=== PATIENT | female | born 1935 | race Caucasian/White ===

== ENCOUNTER 2018-02-12 14:49 | Observation (INO) | payer OTHER, SELFPAY ==
[2018-02-12 15:16] VITALS: BP 162/62; PULSE 81; RESP 18; TEMP 36.9; O2SAT 100
--- NOTE | 2018-02-12 15:38 | PC.NURSE ---
Requests be admitted to SNF for care as lives alone and cannot care for herself after rt hip surgery 2 weeks ago
--- NOTE | 2018-02-12 15:42 | DI.RAD.S_ITS ---
PROCEDURE: XR CHEST 1V INDICATIONS: s/p hip replacement, increased pain TECHNIQUE: One view of the chest was acquired. COMPARISON: None. FINDINGS: Surgical changes and devices: None. Lungs and pleura: There is a nodular density in the left lower lungs on. No pleural effusions or pneumothorax. Lungs are clear. Mediastinum: Mediastinal contours appear normal. Heart size is mildly increased. Bones and chest wall: No suspicious bony lesions. Overlying soft tissues appear unremarkable. Bilateral shoulder joint degeneration. IMPRESSION: 1. No acute cardiopulmonary disease. 2. A nodular density in the left lower lung zone. Recommend a short-term followup standard 2 view chest x-ray for further origin. 3. Mild cardiomegaly. Dictated by: Fabrice Jefferson M.D. on 02/12/2018 at 16:40 Approved by: Fabrice Jefferson M.D. on 02/12/2018 at 16:43
--- NOTE | 2018-02-12 15:42 | DI.RAD.S_ITS ---
PROCEDURE: XR HIP W PEL IF DONE RT 2V INDICATIONS: s/p hip replacement, increased pain TECHNIQUE: 2 views of the hip were acquired. COMPARISON: [facility] [place], CR, XR PELVIS W LATERAL HIP RT, 08/14/2015, 9:59. [facility], CR, PELVIS W/LAT HIP (RT) (PNL), 09/04/2014, 14:02. [facility], CR, HIP 2V RIGHT, 08/28/2008, 12:32. FINDINGS: Bones: There is right hip arthroplasty with prosthesis in anatomic alignment. No fractures or dislocations. No suspicious bony lesions. The visualized pelvic ring appears intact. Degenerative disc disease in the lower lumbar spine. 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 Soft tissues: No suspicious soft tissue calcifications or masses. IMPRESSION: Right hip prosthesis in anatomic alignment. Dictated by: Fabrice Jefferson M.D. on 02/12/2018 at 16:43 Approved by: Fabrice Jefferson M.D. on 02/12/2018 at 16:46
--- NOTE | 2018-02-12 15:44 | ED.GENADULT ---
HPI - General Adult General Chief complaint: Extremity Injury, Lower Stated complaint: discomfort and pain from hip replacement Time Seen by Provider: 02/12/18 15:28 Source: patient and old records reviewed Mode of arrival: other (private auto by EMS from [facility]) Limitations: no limitations History of Present Illness HPI narrative: This is an 82-year-old female who comes to the emergency department with complaint of right lower extremity pain. Patient had a anterior hip replacement about a week ago. Patient states that since then she has been increasingly in pain. Patient states that she was told that she should have help at home but she did not when she was discharged home. She thought she could get around adequately on her own but she has been unable to. She has been taking oxycodone every 6 hr along with 2 Tylenol every 6 hr which helps her pain during the day and is somewhat controlled but during the evening she is quite uncomfortable. Patient states she is not able to get around the home. She is not even really able to move around her bed very easily. She states that she has not had any fevers, no chest pain, no shortness of breath, no nausea or vomiting. She has been having regular stools and taking a stool softener. No new urinary issues. She has been having swelling in both her lower extremities. She is on a diuretic she states the swelling has been worse and she has suspect this is because she had a regular salt diet while she was in the hospital. She was on a diuretic but is continuing to have edema and some swelling from a if on her anterior calf. Patient states at that the incision seems to be healing well on her leg. They both are swollen she does not think that the right is extensively more swollen than the left. She is on Eliquis secondary to have atrial fibrillation and takes Tikosyn. She does have a history significant for cardiac ablation. Patient has been taking her regular medications. Related Data Home Medications Medication Instructions Recorded Confirmed acetaminophen [Tylenol Extra 500 mg PO PRN PRN 02/12/18 02/12/18 Strength] apixaban [Eliquis] 2.5 mg PO BID 02/12/18 02/12/18 carvedilol 25 mg PO BID 02/12/18 02/12/18 docusate sodium 100 mg PO DIRECTED 02/12/18 02/12/18 dofetilide 125 mcg PO Q12H 02/12/18 02/12/18 oxycodone 2.5 - 5 mg PO Q4H PRN 02/12/18 02/12/18 Allergies Allergy/AdvReac Type Severity Reaction Status Date / Time No Known Drug Allergies Allergy Verified 02/12/18 15:52 Review of Systems Review of Systems All systems reviewed & are unremarkable except as noted in HPI and below Constitutional Denies chills, Denies fever(s), Denies frequent falls, Denies malaise and Denies weakness Cardiovascular Denies chest pain, Reports edema (b/l legs), Denies irregular heart rhythm, Denies lightheadedness, Denies palpitations, Denies dyspnea, Denies dyspnea on exertion and Denies orthopnea Respiratory Denies cough, Denies dyspnea, Denies dyspnea on exertion and Denies wheezing Gastrointestinal Gastrointestinal: Denies abdominal pain, Denies change in bowel habits, Denies constipation (taking stool softener), Denies diarrhea, Denies nausea and Denies vomiting Genitourinary Denies urinary frequency, Denies dysuria and Denies urinary urgency Musculoskeletal Reports as per HPI, Denies back pain, Reports arthralgias (right hip pain), Reports limited range of motion, Denies muscle weakness, Denies numbness, Reports radiating pain into limb and Denies tingling Integumentary/Breasts Denies unusual bruising and Reports other (healing incision on right leg, cut on lane left leg oozing fluid (not blood)) Neurologic Denies frequent falls, Denies numbness, Denies sensory deficit, Denies tingling and Denies weakness Endocrine Denies palpitations Allergic/Immunologic Denies wheezing PFSH Medical History Atrial fibrillation (Acute) Surgical History History of radiofrequency ablation procedure for cardiac arrhythmia (Acute) Status post right hip replacement (Acute) Status post surgery (09/12/08) Social History details: Lives on [facility] Smoking Status: Former smoker Exam Narrative Exam Narrative: GENERAL: Alert and oriented x three, obese, well-appearing female in moderate distress. The patient is lying on her left side she appears quite uncomfortable and when she tries to roll onto her back seems to worsen her pain in her right hip. HEENT: Head normocephalic, atraumatic, EOMI, pupils reactive, face symmetric, moist mucous membranes NECK: Supple, full range of motion CARDIOVASCULAR: Regular rate and rhythm without murmurs, rubs or gallops. RESPIRATORY: Breath sounds equal bilaterally, no wheezes rales or rhonchi. ABDOMEN: Soft, nontender. Normoactive bowel sounds all 4 quadrants. No guarding or rebound, rigidity, no mass : No CVA tenderness EXTREMITIES: Patient has pain of the right hip with palpation, she is able to flex it and extend slightly, patient incision appears clean dry and intact and appears to be healing without any signs of cellulitis there is no erythema or drainage. Patient's sutures appear to be dissolving. Patient had 2+ edema bilateral lower extremities. She has cap refill less than 2 sec in both lower extremities. Am able to cut clearly palpate a pulse in both extremities. Patient does not have any weakness, she has normal sensation throughout the legs. Neurovascularly intact NEUROLOGICAL: Cranial nerves II through XII grossly intact. Moving all extremities SKIN: Warm, dry, no petechiae, no rashes or lesions. Initial Vital Signs Initial Vital Signs: Vital Signs Temperature 98.5 F 02/12/18 15:16 Pulse Rate 81 02/12/18 15:16 Respiratory Rate 18 02/12/18 15:16 Blood Pressure 162/62 H 02/12/18 15:16 Pulse Oximetry 100 02/12/18 15:16 Course Orders Ordered: ED Orders 02/12/18 15:41 EKG-12 Lead Stat 02/12/18 15:42 XR chest 1V Stat XR hip w pel if done RT 2V Stat 02/12/18 16:10 B Type Natriuretic Peptide Stat Complete Blood Count AUTO DIFF Stat Comprehensive Metabolic Panel Stat Partial Thromboplastin Time Stat Procalcitonin Stat Prothrombin Time INR Stat Troponin & CK Cardiac Panel Stat Discontinued Medications Furosemide (Lasix) 40 mg IV NOW ONE Stop: 02/12/18 17:18 Last Admin: 02/12/18 17:32 Dose: 40 mg Hydromorphone HCl (Dilaudid) 1 mg IV NOW ONE Stop: 02/12/18 15:42 Last Admin: 02/12/18 15:57 Dose: 1 mg Vital Signs - 8 hr 02/12/18 15:16 02/12/18 16:59 02/12/18 18:03 Temperature 98.5 F Pulse Rate 81 73 78 Respiratory Rate 18 20 19 Blood Pressure 162/62 H Blood Pressure [Left Wrist] 155/54 H 136/50 L Pulse Oximetry 100 98 100 Medical Decision Making Lab Data Lab results reviewed: Yes I reviewed the patient's lab results. Result diagrams: 02/12/18 16:10 02/12/18 16:10 Lab Results 02/12/18 02/12/18 02/12/18 Range/Units 16:10 16:10 16:10 WBC 7.2 (4.5-11.0) X10^3/uL RBC 3.42 L (4.0-5.2) X10^6/uL Hgb 10.7 L (12.0-16.0) g/dL Hct 32.0 L (36-46) % MCV 93.7 (80-100) fL MCH 31.4 (26-34) PG MCHC 33.5 (30-36) % RDW 13.9 (11.6-14.8) % Plt Count 314 (150-400) X10^3/uL Neut % (Auto) 53.1 (50-75) % Lymph % (Auto) 29.8 (25-40) % [place] % (Auto) 8.0 (3-14) % Eos % (Auto) 8.1 H (2-4) % Baso % (Auto) 1.0 (0-2) % Neut # (Auto) 3800 (4389-1736) /uL PT (10.1-12.7) SECONDS INR (0.9-1.3) APTT (26.4-36.2) SECONDS Sodium 139 (137-145) mmol/L Potassium 4.1 (3.4-5.1) mmol/L Chloride 105 (98-107) mmol/L Carbon Dioxide 22 (22-32) mmol/L BUN 17 (7-17) mg/dL Creatinine 0.90 (0.52-1.04) mg/dL Estimated GFR > 60.0 (>60) mL/min BUN/Creatinine Ratio 18.9 (6-22) Glucose 111 H (80-110) mg/dL Calcium 8.9 (8.4-10.2) mg/dL Total Bilirubin 0.6 (0.2-1.3) mg/dL AST 42 H (14-36) IU/L ALT 51 (9-52) IU/L Alkaline Phosphatase 75 (38-126) U/L Total Creatine Kinase 135 (30-135) U/L CK-MB (CK-2) 4.19 H (<2.37) ng/mL CK-MB (CK-2) Rel Index 3.1 (1.5-5.0) % Troponin I 0.014 (0.01-0.034) ng/mL B-Natriuretic Peptide 479 H (<100) Total Protein 7.0 (6.3-8.2) g/dL Albumin 4.0 (3.5-5.0) g/dL Globulin 3.0 (1.7-4.1) g/dL Albumin/Globulin Ratio 1.3 (1.0-2.8) Procalcitonin < 0.05 (<0.5) ng/mL 02/12/18 Range/Units 16:10 WBC (4.5-11.0) X10^3/uL RBC (4.0-5.2) X10^6/uL Hgb (12.0-16.0) g/dL Hct (36-46) % MCV (80-100) fL MCH (26-34) PG MCHC (30-36) % RDW (11.6-14.8) % Plt Count (150-400) X10^3/uL Neut % (Auto) (50-75) % Lymph % (Auto) (25-40) % [place] % (Auto) (3-14) % Eos % (Auto) (2-4) % Baso % (Auto) (0-2) % Neut # (Auto) (7714-4652) /uL PT 13.7 H (10.1-12.7) SECONDS INR 1.2 (0.9-1.3) APTT 32 (26.4-36.2) SECONDS Sodium (137-145) mmol/L Potassium (3.4-5.1) mmol/L Chloride (98-107) mmol/L Carbon Dioxide (22-32) mmol/L BUN (7-17) mg/dL Creatinine (0.52-1.04) mg/dL Estimated GFR (>60) mL/min BUN/Creatinine Ratio (6-22) Glucose (80-110) mg/dL Calcium (8.4-10.2) mg/dL Total Bilirubin (0.2-1.3) mg/dL AST (14-36) IU/L ALT (9-52) IU/L Alkaline Phosphatase (38-126) U/L Total Creatine Kinase (30-135) U/L CK-MB (CK-2) (<2.37) ng/mL CK-MB (CK-2) Rel Index (1.5-5.0) % Troponin I (0.01-0.034) ng/mL B-Natriuretic Peptide (<100) Total Protein (6.3-8.2) g/dL Albumin (3.5-5.0) g/dL Globulin (1.7-4.1) g/dL Albumin/Globulin Ratio (1.0-2.8) Procalcitonin (<0.5) ng/mL Urine Dip Bedside Urine Glucose Negative Bedside Urine Bilirubin - Negative Bedside Urine Ketone - Negative Urine Specific [place] 1.015 Bedside Urine Occult Blood - Negative Bedside Urine pH 6.0 Bedside Urine Protein - Negative Bedside Urine Urobilinogen - Negative Bedside Urine Nitrite - Negative Bedside Urine Leukocytes - Negative Esterase Point of care testing: Urine Dip Bedside Urine Glucose Negative Bedside Urine Bilirubin - Negative Bedside Urine Ketone - Negative Urine Specific [place] 1.015 Bedside Urine Occult Blood - Negative Bedside Urine pH 6.0 Bedside Urine Protein - Negative Bedside Urine Urobilinogen - Negative Bedside Urine Nitrite - Negative Bedside Urine Leukocytes - Negative Esterase Imaging Data left hip xray: Radiologist's impression: [address] [address] XRay Report Signed Patient: Anna Gutierrez MR#: [id number] : 1935 Acct:[id number] Age/Sex: 82 / F Date of Service: 02/12/18 Loc: ED Accession Number: [id number] Procedure: XR hip w pel if done RT 2V Ordering Provider: Yael Shankar D.O. PROCEDURE: XR HIP W PEL IF DONE RT 2V INDICATIONS: s/p hip replacement, increased pain TECHNIQUE: 2 views of the hip were acquired. COMPARISON: [facility] [place], CR, XR PELVIS W LATERAL HIP RT, 08/14/2015, 9:59. [facility], CR, PELVIS W/LAT HIP (RT) (PNL), 09/04/2014, 14:02. [facility], CR, HIP 2V RIGHT, 08/28/2008, 12:32. FINDINGS: Bones: There is right hip arthroplasty with prosthesis in anatomic alignment. No fractures or dislocations. No suspicious bony lesions. The visualized pelvic ring appears intact. Degenerative disc disease in the lower lumbar spine. 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 Soft tissues: No suspicious soft tissue calcifications or masses. IMPRESSION: Right hip prosthesis in anatomic alignment. Dictated by: Fabrice Jefferson M.D. on 02/12/2018 at 16:43 Approved by: Fabrice Jefferson M.D. on 02/12/2018 at 16:46 Chest x-ray: Radiologist's impression: [address] [address] XRay Report Signed Patient: Anna Gutierrez MR#: [id number] : 1935 Acct:[id number] Age/Sex: 82 / F Date of Service: 02/12/18 Loc: ED Accession Number: [id number] Procedure: XR hip w pel if done RT 2V Ordering Provider: Yael Shankar D.O. PROCEDURE: XR HIP W PEL IF DONE RT 2V INDICATIONS: s/p hip replacement, increased pain TECHNIQUE: 2 views of the hip were acquired. COMPARISON: [facility], CR, XR PELVIS W LATERAL HIP RT, 08/14/2015, 9:59. [facility], CR, PELVIS W/LAT HIP (RT) (PNL), 09/04/2014, 14:02. [facility], CR, HIP 2V RIGHT, 08/28/2008, 12:32. FINDINGS: Bones: There is right hip arthroplasty with prosthesis in anatomic alignment. No fractures or dislocations. No suspicious bony lesions. The visualized pelvic ring appears intact. Degenerative disc disease in the lower lumbar spine. 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 Soft tissues: No suspicious soft tissue calcifications or masses. IMPRESSION: Right hip prosthesis in anatomic alignment. Dictated by: Fabrice Jefferson M.D. on 02/12/2018 at 16:43 Approved by: Fabrice Jefferson M.D. on 02/12/2018 at 16:46 ECG Data Attestation: I personally reviewed and interpreted this ECG as follows: Interpretation: X is with sinus rhythm with a ventricular rate of 73 a P are interval 167, QRS of 88 and QTC of 416. No ST segment changes. MDM Narrative Medical decision making narrative: Patient medically evaluated but suspect she has some exacerbation of her pain particularly since she has been trying to do activities on her own when she likely needed some additional help at home post surgery. Has been having difficulty controlling her pain at home with oxycodone and Tylenol. Patient has been able to walk but has been having a lot of difficulty. She does not have any assistance at home. She would be interested in rehab if she would qualify but we do not have PT/OT available to evaluate and it is 4:00 a.m. in the afternoon on Thursday of placement for rehab would be highly unlikely today. Patient pain improved with IV pain medications, able to get to bedside commode but requiring assistance. Spoke with the hospitalist Dr. Velasquez he accepts. Discharge Plan Departure Patient Disposition: Admitted as Observation Clinical Impression: Hip pain, History of arthroplasty of left hip, Acute exacerbation of CHF (congestive heart failure) Discharge Date/Time: 02/12/18 18:56 Interventions: ED Discharge Assessment Last Done: 02/12/18 18:47 Admit Date/Time: 02/12/18 18:19 Admit Provider: Marty Holly
--- NOTE | 2018-02-12 15:48 | ED_ITS ---
HPI - General Adult General Chief complaint: Extremity Injury, Lower Stated complaint: discomfort and pain from hip replacement Time Seen by Provider: 02/12/18 15:28 Source: patient and old records reviewed Mode of arrival: other (private auto by EMS from [facility]) Limitations: no limitations History of Present Illness HPI narrative: This is an 82-year-old female who comes to the emergency department with complaint of right lower extremity pain. Patient had a anterior hip replacement about a week ago. Patient states that since then she has been increasingly in pain. Patient states that she was told that she should have help at home but she did not when she was discharged home. She thought she could get around adequately on her own but she has been unable to. She has been taking oxycodone every 6 hr along with 2 Tylenol every 6 hr which helps her pain during the day and is somewhat controlled but during the evening she is quite uncomfortable. Patient states she is not able to get around the home. She is not even really able to move around her bed very easily. She states that she has not had any fevers, no chest pain, no shortness of breath, no nausea or vomiting. She has been having regular stools and taking a stool softener. No new urinary issues. She has been having swelling in both her lower extremities. She is on a diuretic she states the swelling has been worse and she has suspect this is because she had a regular salt diet while she was in the hospital. She was on a diuretic but is continuing to have edema and some swelling from a if on her anterior calf. Patient states at that the incision seems to be healing well on her leg. They both are swollen she does not think that the right is extensively more swollen than the left. She is on Eliquis secondary to have atrial fibrillation and takes Tikosyn. She does have a history significant for cardiac ablation. Patient has been taking her regular medications. Related Data Home Medications Medication Instructions Recorded Confirmed acetaminophen [Tylenol Extra 500 mg PO PRN PRN 02/12/18 02/12/18 Strength] apixaban [Eliquis] 2.5 mg PO BID 02/12/18 02/12/18 carvedilol 25 mg PO BID 02/12/18 02/12/18 docusate sodium 100 mg PO DIRECTED 02/12/18 02/12/18 dofetilide 125 mcg PO Q12H 02/12/18 02/12/18 oxycodone 2.5 - 5 mg PO Q4H PRN 02/12/18 02/12/18 Allergies Allergy/AdvReac Type Severity Reaction Status Date / Time No Known Drug Allergies Allergy Verified 02/12/18 15:52 Review of Systems Review of Systems All systems reviewed & are unremarkable except as noted in HPI and below Constitutional Denies chills, Denies fever(s), Denies frequent falls, Denies malaise and Denies weakness Cardiovascular Denies chest pain, Reports edema (b/l legs), Denies irregular heart rhythm, Denies lightheadedness, Denies palpitations, Denies dyspnea, Denies dyspnea on exertion and Denies orthopnea Respiratory Denies cough, Denies dyspnea, Denies dyspnea on exertion and Denies wheezing Gastrointestinal Gastrointestinal: Denies abdominal pain, Denies change in bowel habits, Denies constipation (taking stool softener), Denies diarrhea, Denies nausea and Denies vomiting Genitourinary Denies urinary frequency, Denies dysuria and Denies urinary urgency Musculoskeletal Reports as per HPI, Denies back pain, Reports arthralgias (right hip pain), Reports limited range of motion, Denies muscle weakness, Denies numbness, Reports radiating pain into limb and Denies tingling Integumentary/Breasts Denies unusual bruising and Reports other (healing incision on right leg, cut on lane left leg oozing fluid (not blood)) Neurologic Denies frequent falls, Denies numbness, Denies sensory deficit, Denies tingling and Denies weakness Endocrine Denies palpitations Allergic/Immunologic Denies wheezing PFSH Medical History Atrial fibrillation (Acute) Surgical History History of radiofrequency ablation procedure for cardiac arrhythmia (Acute) Status post right hip replacement (Acute) Status post surgery (09/12/08) Social History details: Lives on [facility] Smoking Status: Former smoker Exam Narrative Exam Narrative: GENERAL: Alert and oriented x three, obese, well-appearing female in moderate distress. The patient is lying on her left side she appears quite uncomfortable and when she tries to roll onto her back seems to worsen her pain in her right hip. HEENT: Head normocephalic, atraumatic, EOMI, pupils reactive, face symmetric, moist mucous membranes NECK: Supple, full range of motion CARDIOVASCULAR: Regular rate and rhythm without murmurs, rubs or gallops. RESPIRATORY: Breath sounds equal bilaterally, no wheezes rales or rhonchi. ABDOMEN: Soft, nontender. Normoactive bowel sounds all 4 quadrants. No guarding or rebound, rigidity, no mass : No CVA tenderness EXTREMITIES: Patient has pain of the right hip with palpation, she is able to flex it and extend slightly, patient incision appears clean dry and intact and appears to be healing without any signs of cellulitis there is no erythema or drainage. Patient's sutures appear to be dissolving. Patient had 2+ edema bilateral lower extremities. She has cap refill less than 2 sec in both lower extremities. Am able to cut clearly palpate a pulse in both extremities. Patient does not have any weakness, she has normal sensation throughout the legs. Neurovascularly intact NEUROLOGICAL: Cranial nerves II through XII grossly intact. Moving all extremities SKIN: Warm, dry, no petechiae, no rashes or lesions. Initial Vital Signs Initial Vital Signs: Vital Signs Temperature 98.5 F 02/12/18 15:16 Pulse Rate 81 02/12/18 15:16 Respiratory Rate 18 02/12/18 15:16 Blood Pressure 162/62 H 02/12/18 15:16 Pulse Oximetry 100 02/12/18 15:16 Course Orders Ordered: ED Orders 02/12/18 15:41 EKG-12 Lead Stat 02/12/18 15:42 XR chest 1V Stat XR hip w pel if done RT 2V Stat 02/12/18 16:10 B Type Natriuretic Peptide Stat Complete Blood Count AUTO DIFF Stat Comprehensive Metabolic Panel Stat Partial Thromboplastin Time Stat Procalcitonin Stat Prothrombin Time INR Stat Troponin & CK Cardiac Panel Stat Discontinued Medications Furosemide (Lasix) 40 mg IV NOW ONE Stop: 02/12/18 17:18 Last Admin: 02/12/18 17:32 Dose: 40 mg Hydromorphone HCl (Dilaudid) 1 mg IV NOW ONE Stop: 02/12/18 15:42 Last Admin: 02/12/18 15:57 Dose: 1 mg Vital Signs - 8 hr 02/12/18 15:16 02/12/18 16:59 02/12/18 18:03 Temperature 98.5 F Pulse Rate 81 73 78 Respiratory Rate 18 20 19 Blood Pressure 162/62 H Blood Pressure [Left Wrist] 155/54 H 136/50 L Pulse Oximetry 100 98 100 Medical Decision Making Lab Data Lab results reviewed: Yes I reviewed the patient's lab results. Result diagrams: 02/12/18 16:10 02/12/18 16:10 Lab Results 02/12/18 02/12/18 02/12/18 Range/Units 16:10 16:10 16:10 WBC 7.2 (4.5-11.0) X10^3/uL RBC 3.42 L (4.0-5.2) X10^6/uL Hgb 10.7 L (12.0-16.0) g/dL Hct 32.0 L (36-46) % MCV 93.7 (80-100) fL MCH 31.4 (26-34) PG MCHC 33.5 (30-36) % RDW 13.9 (11.6-14.8) % Plt Count 314 (150-400) X10^3/uL Neut % (Auto) 53.1 (50-75) % Lymph % (Auto) 29.8 (25-40) % [place] % (Auto) 8.0 (3-14) % Eos % (Auto) 8.1 H (2-4) % Baso % (Auto) 1.0 (0-2) % Neut # (Auto) 3800 (2320-3205) /uL PT (10.1-12.7) SECONDS INR (0.9-1.3) APTT (26.4-36.2) SECONDS Sodium 139 (137-145) mmol/L Potassium 4.1 (3.4-5.1) mmol/L Chloride 105 (98-107) mmol/L Carbon Dioxide 22 (22-32) mmol/L BUN 17 (7-17) mg/dL Creatinine 0.90 (0.52-1.04) mg/dL Estimated GFR > 60.0 (>60) mL/min BUN/Creatinine Ratio 18.9 (6-22) Glucose 111 H (80-110) mg/dL Calcium 8.9 (8.4-10.2) mg/dL Total Bilirubin 0.6 (0.2-1.3) mg/dL AST 42 H (14-36) IU/L ALT 51 (9-52) IU/L Alkaline Phosphatase 75 (38-126) U/L Total Creatine Kinase 135 (30-135) U/L CK-MB (CK-2) 4.19 H (<2.37) ng/mL CK-MB (CK-2) Rel Index 3.1 (1.5-5.0) % Troponin I 0.014 (0.01-0.034) ng/mL B-Natriuretic Peptide 479 H (<100) Total Protein 7.0 (6.3-8.2) g/dL Albumin 4.0 (3.5-5.0) g/dL Globulin 3.0 (1.7-4.1) g/dL Albumin/Globulin Ratio 1.3 (1.0-2.8) Procalcitonin < 0.05 (<0.5) ng/mL 02/12/18 Range/Units 16:10 WBC (4.5-11.0) X10^3/uL RBC (4.0-5.2) X10^6/uL Hgb (12.0-16.0) g/dL Hct (36-46) % MCV (80-100) fL MCH (26-34) PG MCHC (30-36) % RDW (11.6-14.8) % Plt Count (150-400) X10^3/uL Neut % (Auto) (50-75) % Lymph % (Auto) (25-40) % [place] % (Auto) (3-14) % Eos % (Auto) (2-4) % Baso % (Auto) (0-2) % Neut # (Auto) (8408-5121) /uL PT 13.7 H (10.1-12.7) SECONDS INR 1.2 (0.9-1.3) APTT 32 (26.4-36.2) SECONDS Sodium (137-145) mmol/L Potassium (3.4-5.1) mmol/L Chloride (98-107) mmol/L Carbon Dioxide (22-32) mmol/L BUN (7-17) mg/dL Creatinine (0.52-1.04) mg/dL Estimated GFR (>60) mL/min BUN/Creatinine Ratio (6-22) Glucose (80-110) mg/dL Calcium (8.4-10.2) mg/dL Total Bilirubin (0.2-1.3) mg/dL AST (14-36) IU/L ALT (9-52) IU/L Alkaline Phosphatase (38-126) U/L Total Creatine Kinase (30-135) U/L CK-MB (CK-2) (<2.37) ng/mL CK-MB (CK-2) Rel Index (1.5-5.0) % Troponin I (0.01-0.034) ng/mL B-Natriuretic Peptide (<100) Total Protein (6.3-8.2) g/dL Albumin (3.5-5.0) g/dL Globulin (1.7-4.1) g/dL Albumin/Globulin Ratio (1.0-2.8) Procalcitonin (<0.5) ng/mL Urine Dip Bedside Urine Glucose Negative Bedside Urine Bilirubin - Negative Bedside Urine Ketone - Negative Urine Specific [place] 1.015 Bedside Urine Occult Blood - Negative Bedside Urine pH 6.0 Bedside Urine Protein - Negative Bedside Urine Urobilinogen - Negative Bedside Urine Nitrite - Negative Bedside Urine Leukocytes - Negative Esterase Point of care testing: Urine Dip Bedside Urine Glucose Negative Bedside Urine Bilirubin - Negative Bedside Urine Ketone - Negative Urine Specific [place] 1.015 Bedside Urine Occult Blood - Negative Bedside Urine pH 6.0 Bedside Urine Protein - Negative Bedside Urine Urobilinogen - Negative Bedside Urine Nitrite - Negative Bedside Urine Leukocytes - Negative Esterase Imaging Data left hip xray: Radiologist's impression: [address] [address] XRay Report Signed Patient: Anna Gutierrez MR#: [id number] : 1935 Acct:[id number] Age/Sex: 82 / F Date of Service: 02/12/18 Loc: ED Accession Number: [id number] Procedure: XR hip w pel if done RT 2V Ordering Provider: Yael Shankar D.O. PROCEDURE: XR HIP W PEL IF DONE RT 2V INDICATIONS: s/p hip replacement, increased pain TECHNIQUE: 2 views of the hip were acquired. COMPARISON: [facility], CR, XR PELVIS W LATERAL HIP RT, 08/14/2015, 9:59. [facility], CR, PELVIS W/LAT HIP (RT) (PNL), 09/04, 14:02. [facility], CR, HIP 2V RIGHT, 08/28/2008, 12:32. FINDINGS: Bones: There is right hip arthroplasty with prosthesis in anatomic alignment. No fractures or dislocations. No suspicious bony lesions. The visualized pelvic ring appears intact. Degenerative disc disease in the lower lumbar spine. 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 Soft tissues: No suspicious soft tissue calcifications or masses. IMPRESSION: Right hip prosthesis in anatomic alignment. Dictated by: Fabrice Jefferson M.D. on 02/12/2018 at 16:43 Approved by: Fabrice Jefferson M.D. on 02/12/2018 at 16:46 Chest x-ray: Radiologist's impression: [address] [address] XRay Report Signed Patient: Anna Gutierrez MR#: [id number] : 1935 Acct:[id number] Age/Sex: 82 / F Date of Service: 02/12/18 Loc: ED Accession Number: [id number] Procedure: XR hip w pel if done RT 2V Ordering Provider: Yael Shankar D.O. PROCEDURE: XR HIP W PEL IF DONE RT 2V INDICATIONS: s/p hip replacement, increased pain TECHNIQUE: 2 views of the hip were acquired. COMPARISON: [facility], CR, XR PELVIS W LATERAL HIP RT, 08/14/2015, 9:59. [facility], CR, PELVIS W/LAT HIP (RT) (PNL), 09/04, 14:02. [facility], CR, HIP 2V RIGHT, 08/28/2008, 12:32. FINDINGS: Bones: There is right hip arthroplasty with prosthesis in anatomic alignment. No fractures or dislocations. No suspicious bony lesions. The visualized pelvic ring appears intact. Degenerative disc disease in the lower lumbar spine. 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 Soft tissues: No suspicious soft tissue calcifications or masses. IMPRESSION: Right hip prosthesis in anatomic alignment. Dictated by: Fabrice Jefferson M.D. on 02/12/2018 at 16:43 Approved by: Fabrice Jefferson M.D. on 02/12/2018 at 16:46 ECG Data Attestation: I personally reviewed and interpreted this ECG as follows: Interpretation: X is with sinus rhythm with a ventricular rate of 73 a P are interval 167, QRS of 88 and QTC of 416. No ST segment changes. MDM Narrative Medical decision making narrative: Patient medically evaluated but suspect she has some exacerbation of her pain particularly since she has been trying to do activities on her own when she likely needed some additional help at home post surgery. Has been having difficulty controlling her pain at home with oxycodone and Tylenol. Patient has been able to walk but has been having a lot of difficulty. She does not have any assistance at home. She would be interested in rehab if she would qualify but we do not have PT/OT available to evaluate and it is 4:00 a.m. in the afternoon on Thursday of placement for rehab would be highly unlikely today. Patient pain improved with IV pain medications , able to get to bedside commode but requiring assistance. Spoke with the hospitalist Dr. Velasquez he accepts. Discharge Plan Departure Patient Disposition: Admitted as Observation Clinical Impression: Hip pain, History of arthroplasty of left hip, Acute exacerbation of CHF ( congestive heart failure) Discharge Date/Time: 02/12/18 18:56 Interventions: ED Discharge Assessment Last Done: 02/12/18 18:47 Admit Date/Time: 02/12/18 18:19 Admit Provider: Marty Holly
[2018-02-12] MEDS: HYDROMORPHONE 1 MG INJ IV (15:57)
--- NOTE | 2018-02-12 15:58 | PC.NURSE ---
Pt states I could only use her rt hand for IV start. attempted but pt would not remain still and it failed. IV started to L hand as pt would not roll over onto back due to painful rt hip
[2018-02-12 16:20] LABS: Add Manual Diff / Slide Review NO; Eosinophils Percent Auto 8.1 % (2-4); Hemoglobin 10.7 g/dL (12.0-16.0); Lymphocytes Percent Auto 29.8 % (25-40); Mean Corpuscular HGB Conc 33.5 % (30-36); Mean Corpuscular Hemoglobin 31.4 PG (26-34); Mean Corpuscular Volume 93.7 fL (80-100); Neutrophils Absolute Auto 3800 /uL (1500-7000); Neutrophils Percent Auto 53.1 % (50-75); Platelet Count 314 X10^3/uL (150-400); Red Blood Cell Count 3.42 X10^6/uL (4.0-5.2); Red Cell Distribution Width 13.9 % (11.6-14.8); White Blood Cell Count 7.2 X10^3/uL (4.5-11.0)
[2018-02-12 16:38] LABS: INR 1.2 (0.9-1.3); Prothrombin Time 13.7 SECONDS (10.1-12.7)
[2018-02-12 16:41] LABS: PTT Partial Thromboplastin Tim 32 SECONDS (26.4-36.2)
[2018-02-12 16:43] LABS: Alanine Aminotransferase 51 IU/L (9-52); Albumin Globulin Ratio 1.3 (1.0-2.8); Alkaline Phosphatase 75 U/L (38-126); Aspartate Aminotransferase 42 IU/L (14-36); BUN Creatinine Ratio 18.9 (6-22); Bilirubin Total 0.6 mg/dL (0.2-1.3); Blood Urea Nitrogen 17 mg/dL (7-17); Calcium 8.9 mg/dL (8.4-10.2); Carbon Dioxide 22 mmol/L (22-32); Chloride 105 mmol/L (98-107); Creatine Kinase 135 U/L (30-135); Estimated Glomerular Filt Rate > 60.0 mL/min (>60); Glucose 111 mg/dL (80-110); HEMOLYSIS 15 (0-50); Potassium 4.1 mmol/L (3.4-5.1); Sodium 139 mmol/L (137-145)
[2018-02-12 16:54] LABS: Troponin I 0.014 ng/mL (0.01-0.034)
[2018-02-12 16:58] LABS: CKMB % Relative Index 3.1 % (1.5-5.0); Creatine Kinase MB 4.19 ng/mL (<2.37)
[2018-02-12 16:59] VITALS: BP 155/54; PULSE 73; RESP 20; O2SAT 98
[2018-02-12 17:11] LABS: B Type Natriuretic Peptide 479 (<100)
[2018-02-12 17:13] LABS: Procalcitonin < 0.05 ng/mL (<0.5)
[2018-02-12] MEDS: FUROSEMIDE 40 MG/4 ML VIAL IV (17:32)
[2018-02-12 18:03] VITALS: BP 136/50; PULSE 78; RESP 19; O2SAT 100
[2018-02-12 19:00] VITALS: BP 190/80; PULSE 84; RESP 20; TEMP 36.6; O2SAT 100
[2018-02-12 19:44] VITALS: BMI 33.0
[2018-02-12] MEDS: HYDROMORPHONE 0.5 MG INJ 1 MG IV (19:44)
[2018-02-12] MEDS: DOFETILIDE 125 MCG 125 EACH PO (19:52)
[2018-02-12] MEDS: OXYCODONE IR 10 MG TABLET PO (19:52)
[2018-02-12 19:53] VITALS: BP 116/75; PULSE 90
[2018-02-12] MEDS: APIXABAN 5 MG TABLET 2.5 MG PO (19:53)
[2018-02-12] MEDS: CARVEDILOL 25 MG TABLET PO (19:53)
--- NOTE | 2018-02-12 20:11 | PM.HP.1 ---
History of Present Illness Date Patient Seen: 02/12/18 Time Patient Seen: 19:11 Chief complaint: discomfort and pain from hip replacement Narrative: This is a 82-year-old female patient who is status post right total hip arthroplasty 1 week ago that presents to the ER related to uncontrolled pain and inability to care for self home. The patient had a total hip on 02/01/2018 through an anterior approach. The patient felt she was doing well and was discharged to home. The patient states she did have home health services and had intermittent help short-term by friend who was a team cdl driver with the formerly [facility]. The patient complains of increasing bruising and swelling of the right leg as well as a laceration of the left ankle from her walker which she states did not bleed but wept fluid. Patient does have a history of atrial fibrillation is presently on Eliquis and carvedilol as well as dofelitide for rhythm control. She underwent ablation in April of this year that has failed control the rhythm. She has had previous bilateral ankle swelling exacerbated by salt consumption. At this time she denies chest pain or shortness of breath. She denies headaches or dizziness, abdominal pain, nausea or vomiting. She has had constipation related to opiate use with the last bowel movement yesterday. Patient History Medical History Atrial fibrillation (Acute) Non-ulcer dyspepsia (Acute) Surgical History History of cataract surgery (Acute) History of inguinal hernia repair (Acute) History of radiofrequency ablation procedure for cardiac arrhythmia (Acute) Status post right hip replacement (Acute) Status post surgery (09/12/08) Family & Social History Safety & Behavioral: Feels Safe in Current Yes Environment Been Physically Hurt or No Threatened By a Person Tobacco & Substance use: Smoking Status Former smoker alcohol intake frequency 0-2 drinks per day Substance Use Type does not use Comment: The patient lives in a single family dwelling by herself on [facility]. She is single and her parents are both and she has no siblings. Meds Home Medications Medication Instructions Recorded Confirmed Type acetaminophen [Tylenol Extra 500 mg PO PRN PRN 02/12/18 02/12/18 History Strength] apixaban [Eliquis] 2.5 mg PO BID 02/12/18 02/12/18 History carvedilol 25 mg PO BID 02/12/18 02/12/18 History docusate sodium 100 mg PO DIRECTED 02/12/18 02/12/18 History dofetilide 125 mcg PO Q12H 02/12/18 02/12/18 History oxycodone 2.5 - 5 mg PO Q4H PRN 02/12/18 02/12/18 History Allergies Allergy/AdvReac Type Severity Reaction Status Date / Time No Known Drug Allergies Allergy Verified 02/12/18 15:52 Review of Systems Review of Systems Constitutional: Denies fevers, chills, sweats, fatigue, good appetite with stable weight Eyes: Positive for floaters, bilateral cataract surgery Denies visual changes, diplopia ENT: Denies hearing changes, ear pain, no nasal congestion, rhinorrhea, no dysphagia, sore throat or dentalgia, no neck stiffness or pain Respiratory: Denies SOB, cough, exertional dyspnea, wheezing Cardiovascular: Positive for atrial fibrillation, bilateral pedal edema, palpitations, Denies chest pain, orthostatic dizziness, syncope Gastrointestinal: Positive for intermittent heartburn, constipation, Denies abdominal pain, nausea or vomiting, no diarrhea, denies blood in stool. Genitourinary: denies discharge, no complains of frequency, burning or urgency, hematuria on voiding Musculoskeletal: Positive for right total arthroplasty 1 week ago, bruising, pain with range of motion, decreased mobility, denies falls Integumentary: Positive for surgical wound right anterior hip, skin tear left ankle, ecchymosis right lower extremity, denies masses, rashes, hives, itching or hair loss Neurological: denies dizziness, confusion, memory impairment, numbness or tingling, speech difficulties or seizures Psychiatric: denies disturbances in thought, attentions or mood, denies substance abuse Endocrine: denies excessive thirst or frequent urination, goiter, lethargy, abnormal sweating, and heat/cold intolerance. Exam Vital Signs (past 8 hours): - 02/12/18 15:16 02/12/18 16:59 02/12/18 18:03 Temperature 98.5 F Pulse Rate 81 73 78 Respiratory Rate 18 20 19 Blood Pressure 162/62 H Blood Pressure [Left Wrist] 155/54 H 136/50 L Pulse Oximetry 100 98 100 02/12/18 19:53 Temperature Pulse Rate 90 Respiratory Rate Blood Pressure 116/75 Blood Pressure [Left Wrist] Pulse Oximetry Oxygen Delivery Method Room Air Narrative Exam Narrative: General: Well developed, obese female in acute discomfort. Skin: Warm, dry, pink, no rashes, skin tear left lower leg HEENT: Normocephalic, atraumatic PERRLA, conjunctiva clear, sclera anicteric, EOMs intact without nystagmus, no sinus tenderness, posterior pharynx pink without lesions or exudate, uvula midline, no lymphadenopathy Neck: Supple, no masses, no thyromegaly, no carotid bruits or JVD Cardiac: Irregularly irregular rhythm, controlled rate, S1-S2, 1/6 systolic murmur, no gallops or rubs, 2+ radial pulse, 1+ dorsalis pedis pulse, 2+ edema right lower extremity, 3+ edema right lower extremity, brisk capillary refill Chest: Symmetrical movement, nontender to AP and lateral compression, breathing non labored, no cough present, BS equal bilateral without coarseness, crackles or wheezes Abdomen: Soft, no tenderness or guarding, no hepatic or splenomegaly, no masses, no flank or suprapubic pain, BS normal. Back: Normal curvature, no tenderness to palpation, no CVA tenderness on percussion Extremities: Well-healing surgical wound right anterior hip without signs of infection, decreased range of motion secondary to pain, marked swelling right lower extremity with ecchymosis, no deformities, strength is 5/5 bilaterally upper and lower extremities, stable gait with walker Neuro: AAOx4, cranial nerves II-XII grossly intact, no paresthesias, distal sensation intact to light touch Psych: pleasant, thought coherent, stable mood and congruent affect Objective Labs Result Diagrams: 02/12/18 16:10 02/12/18 16:10 Labs: Laboratory Results - last 24 hr 02/12/18 02/12/18 02/12/18 16:10 16:10 16:10 WBC 7.2 RBC 3.42 L Hgb 10.7 L Hct 32.0 L MCV 93.7 MCH 31.4 MCHC 33.5 RDW 13.9 Plt Count 314 Neut % (Auto) 53.1 Lymph % (Auto) 29.8 [place] % (Auto) 8.0 Eos % (Auto) 8.1 H Baso % (Auto) 1.0 Neut # (Auto) 3800 PT INR APTT Sodium 139 Potassium 4.1 Chloride 105 Carbon Dioxide 22 BUN 17 Creatinine 0.90 Estimated GFR > 60.0 BUN/Creatinine Ratio 18.9 Glucose 111 H Calcium 8.9 Total Bilirubin 0.6 AST 42 H ALT 51 Alkaline Phosphatase 75 Total Creatine Kinase 135 CK-MB (CK-2) 4.19 H CK-MB (CK-2) Rel Index 3.1 Troponin I 0.014 B-Natriuretic Peptide 479 H Total Protein 7.0 Albumin 4.0 Globulin 3.0 Albumin/Globulin Ratio 1.3 Procalcitonin < 0.05 02/12/18 16:10 WBC RBC Hgb Hct MCV MCH MCHC RDW Plt Count Neut % (Auto) Lymph % (Auto) [place] % (Auto) Eos % (Auto) Baso % (Auto) Neut # (Auto) PT 13.7 H INR 1.2 APTT 32 Sodium Potassium Chloride Carbon Dioxide BUN Creatinine Estimated GFR BUN/Creatinine Ratio Glucose Calcium Total Bilirubin AST ALT Alkaline Phosphatase Total Creatine Kinase CK-MB (CK-2) CK-MB (CK-2) Rel Index Troponin I B-Natriuretic Peptide Total Protein Albumin Globulin Albumin/Globulin Ratio Procalcitonin Assessment & Plan Plan: Assessment/Plan Narrative: 1. Status post right total hip arthroplasty -pain uncontrolled on oxycodone 5 mg and Tylenol 650 mg both q.6 hours -decreased range of motion, self-care deficits related to immobility -patient without home PT or OT -patient not using ice or performing home exercise -initiate pain control with single dose of hydromorphone followed by oxycodone 1-2 q.4 hours as needed and Tylenol 650 mg q.6 PRN -PT and OT to consult 2. Atrial fibrillation -irregularly irregular pulse on exam, controlled rate -patient describes episodes of palpitations, denies chest pain or shortness of breath -will continue Eliquis anticoagulation -will continue carvedilol and dofetilide for rate and rhythm control 3. Bilateral pedal edema, acute, present on admission -marked bilateral pitting pedal edema right greater than left -prior history of intermittent ankle swelling previously not requiring diuretic therapy -atrial fibrillation with no complaints of chest pain or shortness of breath, no cough, 100% saturation room air, no evidence of pulmonary edema on chest x-ray are auscultation -furosemide 40 mg daily -elevate feet -low-salt heart healthy diet 4. Constipation -last bowel movement yesterday -will continue docusate 100 mg b.i.d. -will add MiraLax daily as needed for constipation -will increase activity with PT/OT encourage ambulation Disposition: Admit OBSERVATION, estimated length of stay 1-2 days, goal is to discharge to rehabilitation facility
[2018-02-12] MEDS: DOCUSATE 100 MG CAPSULE PO (23:13)
[2018-02-12 23:47] VITALS: BP 145/69; PULSE 75; RESP 16; TEMP 36.6; O2SAT 97
[2018-02-13] VITALS (11 sets, daily range): BP systolic 121–198; BP diastolic 61–84; PULSE 74–82; RESP 15–18; TEMP 36.6–37; O2SAT 96–100
--- NOTE | 2018-02-13 00:24 | PC.NURSE ---
Admission/Evening Shift Note(02/12/18)- Patient arrived to room from ER via stretcher. Patient able to ambulate with walker from strecher to bed and then to bathroom without issue. Dressing to right hip surgical site removed in ER. Replaced dressing with aquacell. patient reports hip pain at 8/10. PRN iv dilaudid given, PRN PO oxycodone given. patient tolerated with no s/s of ase noted. positive results reported. Patient refused SCD's, refused to sleep in bed, refused to have IV site changed after complaints of discomfort at that IV site. Patient also refused to do admission questions, multiple attempts made with each one refused. Completed as much admission assessment as possible. Patient in recliner chair sleeping with ear plugs in. Talked with patient reguarding calling for assistance. patient agreed. safety measures in place. call odell and phone within reach. will continue to monitor.
[2018-02-13] MEDS: OXYCODONE IR 10 MG TABLET PO ×3 (02:03→23:56)
[2018-02-13] MEDS: BACLOFEN 10 MG TABLET PO ×3 (02:38→21:26)
--- NOTE | 2018-02-13 05:13 | PC.NURSE ---
Shift Note: Received pt from evening shift. During assessment found pt to be tearful, admittedly anxious, frustrated with having to repeat her history with each person, and per pt own admission being difficult. Pt stated that after her total hip replacement at [facility] that she went home to [facility] and did not participate in physical or occupational therapy and did not follow post op recommendations of ice and elevation. Pt reports that being in bed is painful to her lower back, buttocks, and legs and that she spends most of her time sitting in a chair. This RN spent significant time educating pt on the need for post-op follow through, pain management, and realistic expectations for pain and mobility, which is documented in pt teaching record. Pt consented to spending time in hospital bed with SCDs on as pt has significant bilateral 4+ pitting edema that is currently weeping from a left lower extremity wound. Pt educated on pain scale and available medications and this RN consulted with LAVELL Alcantara for additional muscle relaxant which was subsequently ordered and given per MAR. Pt will urgently request to get up out of bed or chair due to pain and will become frustrated and tearful with waiting. Pt ambulates as a 1PA with FWW. At this time pt wants to participate in physical and occupational therapies and to have a return to mobility.
[2018-02-13 05:38] LABS: Add Manual Diff / Slide Review NO; Basophils Percent Auto 0.7 % (0-2); Hemoglobin 9.8 g/dL (12.0-16.0); Lymphocytes Percent Auto 31.9 % (25-40); Mean Corpuscular Hemoglobin 32.4 PG (26-34); Mean Corpuscular Volume 92.7 fL (80-100); Monocytes Percent Auto 8.9 % (3-14); Neutrophils Absolute Auto 4300 /uL (1500-7000); Neutrophils Percent Auto 51.5 % (50-75); Platelet Count 281 X10^3/uL (150-400); Red Blood Cell Count 3.02 X10^6/uL (4.0-5.2); Red Cell Distribution Width 13.8 % (11.6-14.8); White Blood Cell Count 8.3 X10^3/uL (4.5-11.0)
[2018-02-13 06:11] LABS: Blood Urea Nitrogen 18 mg/dL (7-17); Calcium 8.4 mg/dL (8.4-10.2); Carbon Dioxide 23 mmol/L (22-32); Chloride 102 mmol/L (98-107); Estimated Glomerular Filt Rate > 60.0 mL/min (>60); Glucose 94 mg/dL (80-110); HEMOLYSIS < 15 (0-50); Potassium 3.8 mmol/L (3.4-5.1); Sodium 134 mmol/L (137-145)
[2018-02-13] MEDS: APIXABAN 5 MG TABLET 2.5 MG PO ×2 (07:50→21:25)
[2018-02-13] MEDS: DOFETILIDE 125 MCG 125 EACH PO ×2 (07:50→21:15)
[2018-02-13] MEDS: CARVEDILOL 25 MG TABLET PO ×2 (07:50→21:26)
--- NOTE | 2018-02-13 10:49 | CM.DPC ---
Referral faxed to [facility]
--- NOTE | 2018-02-13 10:51 | CM.DANOTE ---
Addendum entered by Мария Branham LPN 02/13/18 14:34: Just spoke with weekend CM assigned to pt's case: Anastasiya J: [phone]. Discussed pt's case, failure of the home d/c, issues with CHF, edema, leg wound and PT/OT recommendation of snf rehab. Anastasiya anticipates being able to auth the snf stay at [facility] if documentation supports same and with a d/c tomorrow if pt remains stable. [facility] is faxed the referral package now. Anastasiya warns there will be a lag in her receipt of info due to their fax system but hopes to review before end of day and have an answer either this rika or tomorrow morning. Will be following closely. Will update pt now. Original Note: Discharge Planning/Care Management DCP: assessment: case received, discussed in Team Rounds and met with pt. Introduced self and role. Pt is an 82 year old female who admitted to care of the hospitalist team last night. Payer: initially on face sheet as Medicare. Updated review by Admission Counselor Krystina confirms Castillo MCR ADV. Admission status: still in review by SANTA Hernandez Pt confirms that she had surgery 02/01 for R FADY at [facility] in [place]: anterior approach. Stayed one night in hospital and with a d/c home the next day. [facility] tractor trailer moving van driver Brett drove her and she had prearranged that he would spend one night when she got home to make sure she was ok. Pt states they made it sound like it would all be very easy. Plus I have friends who have had this surgery and did just fine. I am so embarrassed that I did so poorly and I kind of took it out on the staff when I first got here. I am very sorry for that.. Pt was sitting up in chair during conversation. Has large bandage on L LE and both legs noteably swollen, R appearing more so than L. She said the accidently backed her walker into her legs in the kitchen. It had skids on back as she has rugs at home. The skid injured the leg and fluid just poured out of it for days. Pt says she was to have had HH but only agency that [facility] had no availability until Feb 23 and so it was not set up. Pt will work with PT/OT today and Dr. Hein will be seeing her. At this time she is strongly considering snf stay for perhaps a week or until she is ok to manage at home. She is open to paying privately if need be but with the discovery that pt has Castillo a request for snf auth will be submitted as soon as therapy notes are available. [facility] CC: [facility] is given referral, will review, anticipates acceptance pending Castillo auth (and with consideration of pvt pay if auth denied). CM Discharge Assessment Start: 02/13/18 10:38 Freq: Status: Active Protocol: Document 02/13/18 10:38 ITV (Rec: 02/13/18 10:51 ITV [id number]) Discharge Planning Assessment Advance Directives? Yes History Provided By Patient Medical Record Prior Living Arrangements House Household Members none Independent with ADL's Yes: prior to FADY surgery. Is patient alert and oriented? Yes DME Already Rented / Owned FWW / Walker Comment snf being discussed Medicare Choice List Provided Yes SNF/HH Preference [facility] Has Agency SNF been contacted Yes Comment [facility] reviewing Whiteboard Updated in Patient Room with Yes name and ext. 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
--- NOTE | 2018-02-13 11:11 | PM.PN.1 ---
Subjective Date Patient Seen: 02/13/18 Time Patient Seen: 11:12 Interval history: PATIENT WITH DEMENTIA NO CP/SOB NO FEVER OR CHILLS REPORTED COUCH AND LOWER EXT PAIN EDEMA REPORTED WELL, WORSENED NO SIGNIFICANT ISSUES OVERNIGHT Exam Vital Signs (past 8 hours): - 02/13/18 05:00 02/13/18 08:00 02/13/18 08:07 Temperature 97.8 F 98.6 F Pulse Rate 82 81 Respiratory Rate 18 18 Blood Pressure 150/61 H 140/84 Pulse Oximetry 98 100 96 Oxygen Delivery Method Room Air Narrative Exam Narrative: NO ACUTE DISTRESS. PATIENT IS ALERT ORIENTED X2. VITAL SIGNS STABLE WITH SOME HTN NOTED HEAD ATRAUMATIC NORMOCEPHALIC NECK : SUPPLE WITHOUT ADENOPATHY NO CAROTID BRUITS EYE: EOMI, PERRLA, NORMAL CONJUNCTIVA; NO JAUNDICE CHEST: REGULAR RATE. NO RUBS. PMI IS NON DISPLACED. NO MURMURS; NORMAL S1-S2; SEVERE EDEMA TO BLE; NO JVD PULMONARY: DECREASED BS OVER THE BASES. MODERATE BIBASILAR CRACKLES NOTED; NO INCREASED DULLNESS TO PERCUSSION; MILD WHEEZING AT THE APICES ABDOMEN: SOFT. NONTENDER. NONDISTENDED. BOWEL SOUNDS ARE PRESENT IN ALL 4 QUADRANTS. NO MASS. OBESE EXTREMITIES: 4+ EDEMA. NO CYANOSIS CLUBBING NOTED. NEURO: CRANIAL NERVES 2-12 GROSSLY INTACT. NO FOCAL NEUROLOGICAL DEFICIT NOTED. MSK: DISCOMFORT WITH SOME ACTIVE AND PASSIVE ROM OF THE RT LE; CLOSED SURG INCISION NOTED; NO PURULENT DRAINAGE. SKIN: NORMAL FOR ETHNICITY; NO ECCHYMOSIS. NO LESION. GOOD TURGOR.; NO RASHES : NORMAL EXTERNAL GENITALIA. PSYCH : DEMENTIA; CALM AND COOPERATIVE. ALERT AWAKE ORIENTED X2 Objective Labs Result Diagrams: 02/13/18 04:52 02/13/18 04:52 Labs: Laboratory Results - last 24 hr 02/12/18 02/12/18 02/12/18 16:10 16:10 16:10 WBC 7.2 RBC 3.42 L Hgb 10.7 L Hct 32.0 L MCV 93.7 MCH 31.4 MCHC 33.5 RDW 13.9 Plt Count 314 Neut % (Auto) 53.1 Lymph % (Auto) 29.8 [place] % (Auto) 8.0 Eos % (Auto) 8.1 H Baso % (Auto) 1.0 Neut # (Auto) 3800 PT INR APTT Sodium 139 Potassium 4.1 Chloride 105 Carbon Dioxide 22 BUN 17 Creatinine 0.90 Estimated GFR > 60.0 BUN/Creatinine Ratio 18.9 Glucose 111 H Calcium 8.9 Magnesium 2.0 Total Bilirubin 0.6 AST 42 H ALT 51 Alkaline Phosphatase 75 Total Creatine Kinase 135 CK-MB (CK-2) 4.19 H CK-MB (CK-2) Rel Index 3.1 Troponin I 0.014 B-Natriuretic Peptide 479 H Total Protein 7.0 Albumin 4.0 Globulin 3.0 Albumin/Globulin Ratio 1.3 Procalcitonin < 0.05 02/12/18 02/13/18 02/13/18 16:10 04:52 04:52 WBC 8.3 RBC 3.02 L Hgb 9.8 L Hct 28.0 L MCV 92.7 MCH 32.4 MCHC 35.0 RDW 13.8 Plt Count 281 Neut % (Auto) 51.5 Lymph % (Auto) 31.9 [place] % (Auto) 8.9 Eos % (Auto) 7.0 H Baso % (Auto) 0.7 Neut # (Auto) 4300 PT 13.7 H INR 1.2 APTT 32 Sodium 134 L Potassium 3.8 Chloride 102 Carbon Dioxide 23 BUN 18 H Creatinine 0.90 Estimated GFR > 60.0 BUN/Creatinine Ratio 20.0 Glucose 94 Calcium 8.4 Magnesium Total Bilirubin AST ALT Alkaline Phosphatase Total Creatine Kinase CK-MB (CK-2) CK-MB (CK-2) Rel Index Troponin I B-Natriuretic Peptide Total Protein Albumin Globulin Albumin/Globulin Ratio Procalcitonin Assessment & Plan Plan: Assessment/Plan Narrative: IMPRESSION AND PLAN STATUS POST RIGHT HIP ARTHROPLASTY. THIS WAS DONE AT ANOTHER FACILITY. APPARENTLY PATIENT HAD AN ANTERIOR APPROACH. SHE APPEARED TO BE CLINICALLY IMPROVED BUT NOT STABLE IN REGARD TO THE SURGERY WITH NO ACUTE COMPLICATION NOTED ACUTELY; CONTINUE TO MONITOR CLOSELY. CONSULT ORTHOPEDIC SURGERY INDICATED. WE MAY NEED TO TRANSFER THE PATIENT TO THE FACILITY WHERE SHE RECEIVED THE SURGERY IF ANY COMPLICATIONS ARISE; PHYSICAL THERAPY AND OCCUPATIONAL THERAPY WILL BE ORDERED. INCENTIVE SPIROMETRY WA. AMBULATE TOLERATED. FALL PRECAUTIONS. PHYSICAL DECONDITIONING ASSOCIATED ALSO WITH POSTOPERATIVE STATE. POOR BALANCE NOTED. STRICT FALL PRECAUTIONS WHILE IN HOUSE. PHYSICAL THERAPY AND OCCUPATIONAL THERAPY WILL BE ORDERED; WE WILL LIKELY NEED [facility] REFERRAL ON DISPOSITION UNSTEADY GAIT. SECONDARY TO ABOVE. FALL PRECAUTIONS. THE PATIENT IS HIGH RISK FOR INJURY FROM FALL IF NOT CLOSELY MONITORED. PHYSICAL THERAPY AND OCCUPATIONAL THERAPY ORDERED; WILL LIKELY NEED [facility] FACILITY ON DISPOSITION MORBID OBESITY. OUTPATIENT MANAGEMENT. EXTENSIVE COUNSELING GIVEN. PATIENT NEED LIFESTYLE CHANGES POSSIBLE CHF. SYSTOLIC VERSUS DIASTOLIC VERSUS COMBINED VS PRESERVED SYSTOLIC FUNCTION NO SHORTNESS OF BREATH. HOWEVER, THIS COULD BE AN ACUTE ACUTE EXACERBATION WEIGHT EDEMA PRESENT TO BILATERAL LOWER EXTREMITIES; CHEST X-RAY WAS NEGATIVE FOR CONGESTION HOWEVER CARDIOMEGALY WAS NOTED; WE WILL TREAT WITH IV DIURETICS FOR NOW. WE WILL RESTRICT FLUID. WE WILL CONSIDER ECHOCARDIOGRAM HOWEVER THIS COULD BE DONE OUTPATIENT. LOW-SALT DIET. BILATERAL EXTREMITIES NEED TO BE EVALUATED WHERE PATIENT IS SITTING; A DAILY WEIGHT WITH SAME SCALE. STRICT INPUT AND OUTPUT. KEEP ON TELE AT ALL TIMES; STRICT BLOOD PRESSURE CONTROL. ADDITIONAL MANAGEMENT INDICATED CLINICALLY PULMONARY NODULE. THIS WAS INCIDENTAL FINDING. OUTPATIENT MANAGEMENT RECOMMENDED DOING FOLLOW-UP ATRIAL FIBRILLATION. VENTRICULAR RATE IS CONTROLLED. CONTINUE HOME MEDICATIONS. TELEMETRY AT ALL TIME. REPEAT EKG INDICATED. MONITOR CLOSELY HYPONATREMIA. THIS IS MOST LIKELY HYPERVOLUMIC IN NATURE; PATIENT WILL BE STARTED ON IV DIURETICS. WE WILL RESTRICT FLUIDS. WE WILL MONITOR LABS DAILY. ANEMIA CHRONIC DISEASE. MONITOR CLOSELY WITH SERIAL H&H. TRANSFUSE INDICATED DISCHARGE WILL BE PER CLINICAL COURSE. WE WILL ANTICIPATE DISCHARGE IS IN 2-4 DAYS LIKELY TO [facility] FACILITY Quality VTE Deep Vein Thrombosis/Pulmonary Embolism Present on Admission: No
--- NOTE | 2018-02-13 11:39 | P.PN_ITS ---
Subjective Date Patient Seen: 02/13/18 Time Patient Seen: 11:12 Interval history: PATIENT WITH DEMENTIA NO CP/SOB NO FEVER OR CHILLS REPORTED COUCH AND LOWER EXT PAIN EDEMA REPORTED WELL, WORSENED NO SIGNIFICANT ISSUES OVERNIGHT Exam Vital Signs (past 8 hours): - 02/13/18 05:00 02/13/18 08:00 02/13/18 08:07 Temperature 97.8 F 98.6 F Pulse Rate 82 81 Respiratory Rate 18 18 Blood Pressure 150/61 H 140/84 Pulse Oximetry 98 100 96 Oxygen Delivery Method Room Air Narrative Exam Narrative: NO ACUTE DISTRESS. PATIENT IS ALERT ORIENTED X2. VITAL SIGNS STABLE WITH SOME HTN NOTED HEAD ATRAUMATIC NORMOCEPHALIC NECK : SUPPLE WITHOUT ADENOPATHY NO CAROTID BRUITS EYE: EOMI, PERRLA, NORMAL CONJUNCTIVA; NO JAUNDICE CHEST: REGULAR RATE. NO RUBS. PMI IS NON DISPLACED. NO MURMURS; NORMAL S1- S2; SEVERE EDEMA TO BLE; NO JVD PULMONARY: DECREASED BS OVER THE BASES. MODERATE BIBASILAR CRACKLES NOTED; NO INCREASED DULLNESS TO PERCUSSION; MILD WHEEZING AT THE APICES ABDOMEN: SOFT. NONTENDER. NONDISTENDED. BOWEL SOUNDS ARE PRESENT IN ALL 4 QUADRANTS. NO MASS. OBESE EXTREMITIES: 4+ EDEMA. NO CYANOSIS CLUBBING NOTED. NEURO: CRANIAL NERVES 2-12 GROSSLY INTACT. NO FOCAL NEUROLOGICAL DEFICIT NOTED. MSK: DISCOMFORT WITH SOME ACTIVE AND PASSIVE ROM OF THE RT LE; CLOSED SURG INCISION NOTED; NO PURULENT DRAINAGE. SKIN: NORMAL FOR ETHNICITY; NO ECCHYMOSIS. NO LESION. GOOD TURGOR.; NO RASHES : NORMAL EXTERNAL GENITALIA. PSYCH : DEMENTIA; CALM AND COOPERATIVE. ALERT AWAKE ORIENTED X2 Objective Labs Result Diagrams: 02/13/18 04:52 02/13/18 04:52 Labs: Laboratory Results - last 24 hr 02/12/18 02/12/18 02/12/18 16:10 16:10 16:10 WBC 7.2 RBC 3.42 L Hgb 10.7 L Hct 32.0 L MCV 93.7 MCH 31.4 MCHC 33.5 RDW 13.9 Plt Count 314 Neut % (Auto) 53.1 Lymph % (Auto) 29.8 [place] % (Auto) 8.0 Eos % (Auto) 8.1 H Baso % (Auto) 1.0 Neut # (Auto) 3800 PT INR APTT Sodium 139 Potassium 4.1 Chloride 105 Carbon Dioxide 22 BUN 17 Creatinine 0.90 Estimated GFR > 60.0 BUN/Creatinine Ratio 18.9 Glucose 111 H Calcium 8.9 Magnesium 2.0 Total Bilirubin 0.6 AST 42 H ALT 51 Alkaline Phosphatase 75 Total Creatine Kinase 135 CK-MB (CK-2) 4.19 H CK-MB (CK-2) Rel Index 3.1 Troponin I 0.014 B-Natriuretic Peptide 479 H Total Protein 7.0 Albumin 4.0 Globulin 3.0 Albumin/Globulin Ratio 1.3 Procalcitonin < 0.05 02/12/18 02/13/18 02/13/18 16:10 04:52 04:52 WBC 8.3 RBC 3.02 L Hgb 9.8 L Hct 28.0 L MCV 92.7 MCH 32.4 MCHC 35.0 RDW 13.8 Plt Count 281 Neut % (Auto) 51.5 Lymph % (Auto) 31.9 [place] % (Auto) 8.9 Eos % (Auto) 7.0 H Baso % (Auto) 0.7 Neut # (Auto) 4300 PT 13.7 H INR 1.2 APTT 32 Sodium 134 L Potassium 3.8 Chloride 102 Carbon Dioxide 23 BUN 18 H Creatinine 0.90 Estimated GFR > 60.0 BUN/Creatinine Ratio 20.0 Glucose 94 Calcium 8.4 Magnesium Total Bilirubin AST ALT Alkaline Phosphatase Total Creatine Kinase CK-MB (CK-2) CK-MB (CK-2) Rel Index Troponin I B-Natriuretic Peptide Total Protein Albumin Globulin Albumin/Globulin Ratio Procalcitonin Assessment & Plan Plan: Assessment/Plan Narrative: IMPRESSION AND PLAN STATUS POST RIGHT HIP ARTHROPLASTY. THIS WAS DONE AT ANOTHER FACILITY. APPARENTLY PATIENT HAD AN ANTERIOR APPROACH. SHE APPEARED TO BE CLINICALLY IMPROVED BUT NOT STABLE IN REGARD TO THE SURGERY WITH NO ACUTE COMPLICATION NOTED ACUTELY; CONTINUE TO MONITOR CLOSELY. CONSULT ORTHOPEDIC SURGERY INDICATED. WE MAY NEED TO TRANSFER THE PATIENT TO THE FACILITY WHERE SHE RECEIVED THE SURGERY IF ANY COMPLICATIONS ARISE; PHYSICAL THERAPY AND OCCUPATIONAL THERAPY WILL BE ORDERED. INCENTIVE SPIROMETRY WA. AMBULATE TOLERATED. FALL PRECAUTIONS. PHYSICAL DECONDITIONING ASSOCIATED ALSO WITH POSTOPERATIVE STATE. POOR BALANCE NOTED. STRICT FALL PRECAUTIONS WHILE IN HOUSE. PHYSICAL THERAPY AND OCCUPATIONAL THERAPY WILL BE ORDERED; WE WILL LIKELY NEED LONG TERM REFERRAL ON DISPOSITION UNSTEADY GAIT. SECONDARY TO ABOVE. FALL PRECAUTIONS. THE PATIENT IS HIGH RISK FOR INJURY FROM FALL IF NOT CLOSELY MONITORED. PHYSICAL THERAPY AND OCCUPATIONAL THERAPY ORDERED; WILL LIKELY NEED LONG TERM FACILITY ON DISPOSITION MORBID OBESITY. OUTPATIENT MANAGEMENT. EXTENSIVE COUNSELING GIVEN. PATIENT NEED LIFESTYLE CHANGES POSSIBLE CHF. SYSTOLIC VERSUS DIASTOLIC VERSUS COMBINED VS PRESERVED SYSTOLIC FUNCTION NO SHORTNESS OF BREATH. HOWEVER, THIS COULD BE AN ACUTE ACUTE EXACERBATION WEIGHT EDEMA PRESENT TO BILATERAL LOWER EXTREMITIES; CHEST X-RAY WAS NEGATIVE FOR CONGESTION HOWEVER CARDIOMEGALY WAS NOTED; WE WILL TREAT WITH IV DIURETICS FOR NOW. WE WILL RESTRICT FLUID. WE WILL CONSIDER ECHOCARDIOGRAM HOWEVER THIS COULD BE DONE OUTPATIENT. LOW-SALT DIET. BILATERAL EXTREMITIES NEED TO BE EVALUATED WHERE PATIENT IS SITTING; A DAILY WEIGHT WITH SAME SCALE. STRICT INPUT AND OUTPUT. KEEP ON TELE AT ALL TIMES; STRICT BLOOD PRESSURE CONTROL. ADDITIONAL MANAGEMENT INDICATED CLINICALLY PULMONARY NODULE. THIS WAS INCIDENTAL FINDING. OUTPATIENT MANAGEMENT RECOMMENDED DOING FOLLOW-UP ATRIAL FIBRILLATION. VENTRICULAR RATE IS CONTROLLED. CONTINUE HOME MEDICATIONS. TELEMETRY AT ALL TIME. REPEAT EKG INDICATED. MONITOR CLOSELY HYPONATREMIA. THIS IS MOST LIKELY HYPERVOLUMIC IN NATURE; PATIENT WILL BE STARTED ON IV DIURETICS. WE WILL RESTRICT FLUIDS. WE WILL MONITOR LABS DAILY. ANEMIA CHRONIC DISEASE. MONITOR CLOSELY WITH SERIAL H&H. TRANSFUSE INDICATED DISCHARGE WILL BE PER CLINICAL COURSE. WE WILL ANTICIPATE DISCHARGE IS IN 2-4 DAYS LIKELY TO LONG TERM FACILITY Quality VTE Deep Vein Thrombosis/Pulmonary Embolism Present on Admission: No
--- NOTE | 2018-02-13 12:05 | PT.IIE ---
Surgical History (Last Updated 02/12/18 @ 20:24 by LAVELL Nieto) History of cataract surgery (Acute) History of inguinal hernia repair (Acute) History of radiofrequency ablation procedure for cardiac arrhythmia (Acute) Status post right hip replacement (Acute) Status post surgery (09/12/08) Medical History (Last Updated 02/12/18 @ 20:24 by LAVELL Nieto) Atrial fibrillation (Acute) Non-ulcer dyspepsia (Acute) Physical Therapy Inpatient Evaluation/Re-Eval M1 PT/OT-IP Prior Functional Status Start: 02/13/18 12:16 Freq: NEEDED Status: Active Protocol: Document 02/13/18 12:05 [facility] (Rec: 02/13/18 12:48 [facility] [id number]) Medical Review Prior Functional Status Medical History Reviewed Yes Mobility and Gait prior to surgery, ambulation limited by pain in R hip to household distances and short outdoor level gait with a cane . She reports that after surgery on 02/01/18 and return home, she was severely limited and could barely walk from bathroom to living room and kitchen. Social History Household Members none Living Arrangements House Number of Floors (Floors) One Floor Number of Stairs To Enter/Railing? 4 SE with unilateral rail. Home Environment High Toilet Tub/Shower Home Equipment Front Wheel Walker Straight Cane Raised Toilet Seat Without Armrests Tub Transfer Bench Additional Social History Comment Regular, flat bed and no back for the tub transfer bench. Pt notes that the raised toilet seat pinches her legs and causes bilateral shooting pain . She had a local friend help her into the home and stayed for one or two days, but he is not able to be around 24/7 or stay for long periods of time with her. She had to pay $25 x2 for someone to help her shower. Pt notes that she does not have a recliner, she only has a love seat which is too low for her to get in/out of without pain and could not perform indep. bed mobility or get comfortable in the bed. She states that home health was not able to see her untile February 23, 2018. Her surgery was 02/01/2018 at [facility]. M2 PT-IP Current Condition Start: 02/13/18 12:16 Freq: NEEDED Status: Active Protocol: Document 02/13/18 12:05 [facility] (Rec: 02/13/18 12:48 [facility] [id number]) Physical Therapy Current Condition Current Condition Evaluation Date 02/13/18 Treatment Diagnosis pain s/p R FADY anterior approach (02/01/18), impaired mobility Precautions Anterior Hip Precautions No Hip Extension No Hip External Rotation Other Precautions Anterior R FADY on 02/01/18 @ [facility]. Weight Bearing Status Weight Bearing Status Weight Bear as Tolerated M3 PT-IP Subjective Start: 02/13/18 12:16 Freq: NEEDED Status: Active Protocol: Document 02/13/18 12:05 [facility] (Rec: 02/13/18 12:48 [facility] [id number]) Subjective Physical Therapy Visit Type Type Initial Evaluation Visit Start Time 11:36 Visit Stop Time 12:05 Total Visit Minutes 29 Number of MONITORING AND EVALUATION ADVISOR Visits 0 Physical Therapy Visit Comments Patient Comments Pt states that she was struggling severely at home, unable to do any home chores and the swelling in her legs worsened severely making it difficult to move. Therapy Pain Assessment Pain When Pain Assessed At Rest Pain Present Pain Present Pain Reported Location Right Hip Intensity 2 Scale Used Numeric (1 - 10) M4 PT-IP Mobility and Gait Start: 02/13/18 12:16 Freq: NEEDED Status: Active Protocol: Document 02/13/18 12:05 [facility] (Rec: 02/13/18 12:48 [facility] [id number]) PT-Bed Mobility Assessment Supine to Sit Supine to Sit Moderate Assistance 1 Person Assistance Bedrails Sit to Supine Sit to Supine Moderate Assistance 1 Person Assistance Bedrails Scooting Scooting to Edge of Bed Moderate Assistance Scooting Up and Down in Bed Maximum Assistance PT-Transfer Assessment Sit to and From Stand Sit to and from Stand Contact Guard Assistance 1 Person Assistance Use of Upper Extremities Equipment Transfer Assistive Device Gait Belt Front Wheeled Walker Transfers Transfer Destination Chair Transfer Technique Stand Step Pivot Transfer Ability Level of Assist Contact Guard Assistance Comments Mobility Comments Pt fatigued after bed mobility , required sitting rest break x2 min before transfer to chair for lunch. Gait Assessment Gait Gait Assistance Required: Contact Guard Assist 1 Person Assist Distance (Feet) 50 Assistive Devices Assistive Device Gait Belt Front Wheeled Walker Gait Deviations General Gait Pattern Antalgic Decreased Stride Length Decreased Feet Clearance Flexed Trunk Factors Limiting Gait Function Factors Limiting Gait Function Decreased Activity Tolerance Decreased Strength Limited Range of Motion Pain Poor Balance PT-Balance Assessment Sitting Balance and Reactions Static Sitting Balance Ability Good Dynamic Sitting Balance Ability Good Standing Balance and Reactions Static Standing Balance Ability Good Dynamic Standing Balance Ability Fair Device Used FWW M5 PT-IP Objective Assessments Start: 02/13/18 12:16 Freq: NEEDED Status: Active Protocol: Document 02/13/18 12:05 [facility] (Rec: 02/13/18 12:48 [facility] [id number]) Orientation Orientation/Cognition Level of Alertness Alert Gross Range of Motion Lower Extremity ROM Assessment Right Impaired Strength Lower Extremity Strength Assessment Bilaterally Impaired Hip L hip flexion 3+/5 Knee L knee flexion and extension 4 /5 Ankle L DF 5/5 Comments Strength Comments no MMT performed on RLE due to recent surgery Sensation Assessment Sensation Gross Sensation WNL Other Assessments Other Other Assessments BLE edema with dressing to lower L leg, weeping after bed mobility. M6 PT-IP Treatment Start: 02/13/18 12:16 Freq: NEEDED Status: Active Protocol: Document 02/13/18 12:05 [facility] (Rec: 02/13/18 12:48 [facility] [id number]) Physical Therapy Treatment Education Education Provided Precautions Weight Bearing Status Post-Op Packet Safety M7 PT-IP Assessment and Plan Start: 02/13/18 12:16 Freq: NEEDED Status: Active Protocol: Document 02/13/18 12:05 [facility] (Rec: 02/13/18 12:48 [facility] [id number]) PT Summary Assessment and Plan Potential Rehabilitation Potential Good Status of Condition at Evaluation Evolving Summary Impairments Pain ROM Strength Bed Mobility Transfers Gait Activity Tolerance Assessment Summary Pt is s/p day 12 R FADY with anterior approach. Pt was d/c home, but unable to get home health services in a reasonable amount of time, had not been assessed at home at all before presenting to the ER at [facility] with high levels of reported pain. Pt unable to get in/out of bed independently, requiring moderate assistance. Pt unable to scoot herself in bed, and was fatigued after attempting to scoot with moderate assistance and required 2 min seated rest to tolerate a simple transfer to the chair at bedside. She requires an increased amount of time to perform simple daily mobility, including >5 min to get in/ out of bed. Pt was unable to tolerate laying in bed due to pain and limited mobility, and has no other safe furniture to sleep and rest (love seat is too low to safely get in/ out of in living room), and she has no assistance at home ( lives alone). The initial assistance she received upon return home is not available upon d/c and no long or short term arrangements appear to be safe for her to return home. Pt is not safe to mobilize without assistance, and is not safe to return home at this point. She would greatly benefit from SNF rehabilitation upon d/c to progress her gait, bed mobility, activity tolerance, and to promote a safe d/c. Goals Bed Mobility Goal Standby Assistance Transfer Goal Independent Gait Goal Independent Front Wheel Walker Gait Distance 200 Other Goals up/down 4 steps with unilateral rail and SBA Days to Meet Goals 5 Frequency of Treatment Frequency Of Treatment Twice a Day Treatment Plan Physical Therapy Treatment Plan Bed Mobility Training Transfer Training Gait Training Therapeutic Exercise Post Op Education Discharge Planning Hot or Cold Pack Other Recommendations and Next Treatment progress bed mobility, gait, Focus transfers; stair training when tolerable Recommendations To Nursing Amount of Assist Needed 1 Person Assist Discharge Recommendations PT Discharge Recommendations SNF Rehab
[2018-02-13] MEDS: DOCUSATE 100 MG CAPSULE PO ×2 (12:26→21:26)
[2018-02-13] MEDS: POLYETHYLENE GLYCOL 3350 17 GM POWD.PACK PO (12:26)
--- NOTE | 2018-02-13 12:42 | PC.NURSE ---
AM shift Pt is cooperative and apologetic about difficult behavior with staff. I have been so miserable, I feel so so much better Medicated per Emar for pain control. PT into see Pt and evaluation completed, OT into see Pt and discussed POC. Lasix given IV, edema to LE's 4+ and LLE weeping. PP+ Pt states improved significiantly improved since admission.
[2018-02-13] MEDS: FUROSEMIDE 40 MG/4 ML VIAL IV ×2 (13:04→16:38)
--- NOTE | 2018-02-13 13:48 | OT.IP.EVAL ---
Past Medical History (Last Updated 02/12/18 @ 20:24 by LAVELL Nieto) Atrial fibrillation (Acute) Non-ulcer dyspepsia (Acute) Surgical History (Last Updated 02/12/18 @ 20:24 by LAVELL Nieto) History of cataract surgery (Acute) History of inguinal hernia repair (Acute) History of radiofrequency ablation procedure for cardiac arrhythmia (Acute) Status post right hip replacement (Acute) Status post surgery (09/12/08) Occupational Therapy Inpatient Evaluation/Re-Eval M1 PT/OT-IP Prior Functional Status Start: 02/13/18 12:16 Freq: NEEDED Status: Active Protocol: Document 02/13/18 13:48 [facility] (Rec: 02/13/18 14:29 [facility] [id number]) Medical Review Prior Functional Status Medical History Reviewed Yes Diet/Fluid Consistency Regular Communication WNL Mobility and Gait Prior to surgery, ambulation limited by pain in R hip to household distances and short outdoor level gait with a cane. She reports that after surgery on 02/01/18 and return home, she was severely limited and could barely walk from bathroom to living room and kitchen with FWW. Activities of Daily Living and IADL's Pt was independent with all self care and stood to shower in tub shower combo prior to surgery. Since surgery but has needed max to total assist with socks and shoes due to BLE edema, was max assist for showering by private pay caregiver. Pt states she was not wearing underwear due to difficulty donning/doffing it. Pt was wearing night gown or pajamas at home since surgery. Prior Functional Level (Other details) Since R hip surgery, pt has been struggling with all IADLS including meal prep due to limited mobility from hip pain and worsening BLE edema. She is currently unable to drive and lives alone with limited social support to assist with shopping, laundry, cleaning and meal prep at home Social History Household Members none Living Arrangements House Number of Floors (Floors) One Floor Number of Stairs To Enter/Railing? 4 SE with unilateral rail. Home Environment Standard Height Toilet Tub/Shower Home Equipment Front Wheel Walker Straight Cane Raised Toilet Seat Without Armrests Tub Transfer Kst Operator Held Shower Car Audio Installer Sock Aid Grab Bars In Shower Employment Status Retired Additional Social History Comment Regular, flat bed and no back for the tub transfer bench. Pt notes that the raised toilet seat pinches her legs and causes bilateral shooting pain. She had a local friend help her into the home and stayed for one or two days, but he is not able to be around 24/7 or stay for long periods of time with her. She had to pay $25 x2 for someone to help her shower. Pt notes that she does not have a recliner, she only has a love seat which is too low for her to get in/out of without pain and could not perform indep. bed mobility or get comfortable in the bed. She states that home health was not able to see her untile February 23, 2018. Her surgery was 02/01/2018 at [facility]. M2 OT-IP Current Condition Start: 02/13/18 13:58 Freq: Status: Active Protocol: Document 02/13/18 13:48 P[facility] (Rec: 02/13/18 14:29 PJM [id number]) Occupational Therapy Current Condition Current Condition Evaluation Date 02/13/18 Treatment Diagnosis decr'd ADLs/IADLS?/mobility s/ p R FADY (anterior) 02/01 now w /BLE edema,?CHF Diagnosis Onset Date 02/12/18 Post Operative Precautions Anterior Hip Precautions No Hip Extension No Hip External Rotation Other Precautions Anterior R FADY on 02/01/18 @ [facility]. pt has weeping wound on L anterior lane Weight Bearing Status Weight Bearing Status Weight Bear as Tolerated M3 OT- IP Subjective and Pain Start: 02/13/18 13:58 Freq: Status: Active Protocol: Document 02/13/18 13:48 PJM (Rec: 02/13/18 14:29 PJM [id number]) OT- Subjective Occupational Therapy Visit Type Type Initial Evaluation Visit Start Time 12:42 Visit Stop Time 13:48 Total Visit Minutes 66 Notes Pt had many questions about adapted ADLS/IADLS as she lives alone and needs to be completely independent to return home safely. Occupational Therapy Visit Comments Patient Comments When do you think all this well get better? Patient/Caregiver Goals to resume independent [place] [facility] OT Pain Assessment Pain When Pain Assessed After Treatment Pain Present Pain Present Pain Reported Location Right Hip Intensity 2 Scale Used Numeric (1 - 10) Description Aching Acute Pain Behaviors Facial Grimacing Guarding Restlessness Management Techniques Distraction Re-positioning Timing of Activity with Medications M4 OT- IP ADL's Start: 02/13/18 13:58 Freq: Status: Active Protocol: Document 02/13/18 13:48 P[facility] (Rec: 02/13/18 14:29 PJM [id number]) OT [id number] General Evaluation Self-Feeding Ability Independent OT ADL-Grooming General Evaluation Grooming Ability Standby Assistance Areas Needing Assistance Retrieving/Set-up of Grooming Items Face Washing Comments OT Grooming Comments pt stood at sink 2-3 min this session OT ADL-Oral Care General Eval Oral Care Ability Standby Assistance Areas of Assistance Retrieving/Set-Up of Items Devices Oral Care Devices Toothbrush OT ADL-Dressing General Eval Upper Body Dressing Ability Standby Assistance Lower Body Dressing Ability Minimal Assistance Moderate Assistance Areas Needing Assistance Pants/Shorts Socks Assistive Devices Dressing Assistive Devices Car Audio Installer Sock Aid Comments OT Dressing Comments Provided long shoe horn, but pt's feet too swollen for use of shoes at present. Pt has faculty neuropsychologist and sock aid that she borrowed at home. SHe needs min assist and mod+ verbal cues for effective use of adaptive equipment for lower body dressing. Pt not able to reach L lane where bandaged wound is located. OT ADL-Toileting General Evaluation Toileting Ability Minimal Assistance Areas Needing Assistance Perform Perineal Hygiene Comments OT Toileting Comments Pt reports difficulty completing marina care after bowel movement and relies on use of hand held shower hose in shower for thorough hygiene . Provided information re: toilet paper aids options/ resources. OT ADL-Bathing Bathing Type Bathing Type Shower General Evaluation Bathing Ability Moderate Assistance Devices Bathing Equipment Long Handled Sponge or Product Blending Supervisor Held Shower Sprayer Shower Chair with Arms Grab Bars Comments OT Bathing Comments Provided long bath sponge to increase independence in bathing. M5 OT- IP IADL's Start: 02/13/18 13:58 Freq: Status: Active Protocol: Document 02/13/18 13:48 PJM (Rec: 02/13/18 14:29 PJM [id number]) OT-Instrumental Activities of Daily Living Deficits IADL Deficits Identified Deficits Home Safety Awareness Awareness of Need for Assistance at Home Good Awareness Medication Management Medication Management No Deficits Identified Money Management Money Management No Deficits Identified Meal Preparation Meal Preparation Comments Pt lacks sufficient endurance and mobility to complete effective meal preparation independently and needs education re: transport of items with FWW. Hand Mexican Food Maker Hand Mexican Food Maker Comments Pt unable to complete any rn women services at present due to limited mobility. Driving Driving Comments Pt unbale to drive at present due to recent R hip surgery. Pt has been relying on paid driver examiner from [facility] to assist with transport. M6 OT- IP Functional Cognition Start: 02/13/18 13:58 Freq: Status: Active Protocol: Document 02/13/18 13:48 PJM (Rec: 02/13/18 14:29 PJM [id number]) Cognitive Factors Limiting Selfcare Function Cognitive Ability Level of Alertness Alert Patient Orientation Name Month Place Situation Attention Span Ability Capable of Focused Attention Capable of Sustained Attention Ability to Follow Commands Able to Follow One Step Commands Safety Awareness Decreased Recall of Precautions Decreased Ability to Apply Precautions Underestimates Need for Assistance Problem Solving Ability Unable to Identify Errors Needs Assist to Identify Solutions Executive Function Ability Unable to Integrate Past Experience With Present Action Cognitive Comments Cognitive Assessment Comments Pt alert and oriented and recalls recent events, but has significantly decreased insight into current medical needs and difficulty identifying methods to adapt ADLS/IADLS to increase independence/safety at home. OT- Vision and Hearing OT- Hearing Assessment OT- Hearing Assessment WFL OT- Vision Assessment Visual Acuity WFL Glasses For Reading No Vision Aides At Hospital M7 OT- IP Mobility and Balance Start: 02/13/18 13:58 Freq: Status: Active Protocol: Document 02/13/18 13:48 PJM (Rec: 02/13/18 14:29 PJ [id number]) OT-Transfer Assessment Sit to and From Stand Sit to and from Stand Contact Guard Assistance Minimal Assistance Transfers Transfer Ability Contact Guard Assistance Technique Transfer Destination Chair Toilet Transfer Technique Stand Step Pivot Devices Transfer Assistive Devices Gait Belt Front Wheeled Walker Comments Mobility Comments Pt needs CGA to arise from higher surface, min assist from lwo surface. Pt using BSC over toilet at present. OT- Gait Assessment Gait Gait Assistance Required: Contact Guard Assist Distance (Feet) 20 Assistive Devices Assistive Device Gait Belt Front Wheeled Walker Comments Gait Ability Comments Pt ambulated to bathroom, sink and back to chair. OT- Balance Assessment Sitting Balance and Reactions Static Sitting Balance Ability Good Dynamic Sitting Balance Ability Good Standing Balance and Reactions Static Standing Balance Ability Good Dynamic Standing Balance Ability Fair M8 OT- IP Objective Assessments Start: 02/13/18 13:58 Freq: Status: Active Protocol: Document 02/13/18 13:48 PJM (Rec: 02/13/18 14:29 PJM [id number]) OT Gross Range of Motion Upper Extremity Range of Motion Assessment Within Functional Limits OT Strength Upper Extremity Strength Assessment Within Functional Limits Hand School Speech Language Pathologist Strength Hand Dominance Right OT- Coordination Assessment Comments Coordination Comments BUE WFL OT-Muscle Tone Assessment Muscle Tone WNL No OT Sensation Assessment Comments Summary Comments Pt denies deficits in BUE's Edema Edema Present Edema Comments Severe BLE edema noted with wound on L lane bandaged. M9 OT- IP Assessment and Plan Start: 02/13/18 13:58 Freq: Status: Active Protocol: Document 02/13/18 13:48 PJM (Rec: 02/13/18 14:29 PJM [id number]) OT Summary Assessment and Plan Potential Rehabilitation Potential Good Analytic Complexity at Evaluation Low Summary OT Impairments Pain Balance Functional Mobility Grooming Dressing Toileting Bathing Toilet Transfers Shower Transfers Assessment Summary Low complexity OT assessment completed with emphasis on self care skills after recent R FADY and now new onset severe BLE edema which was creating a significant additional barrier to all functional mobility, especially bed mobility, and transfers. Pt is far below her baseline level of function. She is normally completely independent with all self care, IADLS, mobility , driving [place]. Pt currently has performance deficits in all functional mobility, transfers, standing self care and IADL tasks, lower body dressing, bathing and toileting. Pt was unable to safely manage at home alone after recent surgery and was readmitted after 12 days. Recommend short term SNF for further subacute rehab to increase activity tolerance, safety, and independence in all self care/IADLS. Goals Grooming Goal Independent Dressing Goal Independent Long Handled Shoe Horn Car Audio Installer Sock Aid Toileting Goal Independent Toilet Paper Aid Bathing Goal Standby Assistance Toilet Transfer Goal Independent Raised Toilet Seat Shower Transfer Goal Standby Assistance Tub/Shower Combination Tub Transfer Bench Patient/Caregiver Education Goal Demonstrate Post-Op Precautions Demonstrate Energy Conservation and Pacing OT-Other Goals Grooming to be done standing at sink for 5+ min with no loss of balance and good safety awareness. Days to Meet Goals 5 Frequency of Treatment Frequency Of Treatment Once a Day Treatment Plan OT Treatment Plan ADL Training Functional Mobility Patient/Family Education Discharge Planning Discharge Recommendations OT Discharge Recommendations SNF Rehab Home Equipment Needs provided long shoe horn and long bath sponge
--- NOTE | 2018-02-13 14:25 | PT.IPTN ---
Physical Therapy Treatment Note M2 PT-IP Current Condition Start: 02/13/18 12:16 Freq: NEEDED Status: Active Protocol: Document 02/13/18 12:05 RCC (Rec: 02/13/18 12:48 RCC [id number]) Physical Therapy Current Condition Current Condition Evaluation Date 02/13/18 Treatment Diagnosis pain s/p R FADY anterior approach (02/01/18), impaired mobility Precautions Anterior Hip Precautions No Hip Extension No Hip External Rotation Other Precautions Anterior R FADY on 02/01/18 @ [facility] [place]. Weight Bearing Status Weight Bearing Status Weight Bear as Tolerated M3 PT-IP Subjective Start: 02/13/18 12:16 Freq: NEEDED Status: Active Protocol: Document 02/13/18 14:25 GGD (Rec: 02/13/18 14:53 GGD [email or web address]) Subjective Physical Therapy Visit Type Type Treatment Note Visit Start Time 13:55 Visit Stop Time 14:25 Total Visit Minutes 30 Number of DISTRICT SALES LEADER Visits 1 Physical Therapy Visit Comments Patient Comments Pt stats she having a lot of swelling and hard to lift her legs. Therapy Pain Assessment Pain When Pain Assessed At Rest Pain Present Pain Present Pain Reported M4 PT-IP Mobility and Gait Start: 02/13/18 12:16 Freq: NEEDED Status: Active Protocol: Document 02/13/18 14:25 GGD (Rec: 02/13/18 14:53 GGD [email or web address]) PT-Bed Mobility Assessment Supine to Sit Supine to Sit Minimal Assistance 1 Person Assistance Bedrails Sit to Supine Sit to Supine Minimal Assistance 1 Person Assistance Bedrails Scooting Scooting to Edge of Bed Minimal Assistance Scooting Up and Down in Bed Maximum Assistance PT-Transfer Assessment Sit to and From Stand Sit to and from Stand Contact Guard Assistance 1 Person Assistance Use of Upper Extremities Equipment Transfer Assistive Device Gait Belt Front Wheeled Walker Transfers Transfer Destination Bed Chair Transfer Technique Stand Step Pivot Transfer Ability Level of Assist Contact Guard Assistance Comments Mobility Comments Pt used leg poising inspector for bed mobility and needed min A for bed mobility. Gait Assessment Gait Gait Assistance Required: Contact Guard Assist 1 Person Assist Distance (Feet) 50 Assistive Devices Assistive Device Gait Belt Front Wheeled Walker Gait Deviations General Gait Pattern Antalgic Decreased Stride Length Decreased Feet Clearance Flexed Trunk Factors Limiting Gait Function Factors Limiting Gait Function Decreased Activity Tolerance Decreased Strength Limited Range of Motion Pain Poor Balance Comments Gait Comments mod cues for step to gait pattern and hip precautions. M5 PT-IP Objective Assessments Start: 02/13/18 12:16 Freq: NEEDED Status: Active Protocol: Document 02/13/18 12:05 RCC (Rec: 02/13/18 12:48 RCC [id number]) Orientation Orientation/Cognition Level of Alertness Alert Gross Range of Motion Lower Extremity ROM Assessment Right Impaired Strength Lower Extremity Strength Assessment Bilaterally Impaired Hip L hip flexion 3+/5 Knee L knee flexion and extension 4 /5 Ankle L DF 5/5 Comments Strength Comments no MMT performed on RLE due to recent surgery Sensation Assessment Sensation Gross Sensation WNL Other Assessments Other Other Assessments BLE edema with dressing to lower L leg, weeping after bed mobility. M6 PT-IP Treatment Start: 02/13/18 12:16 Freq: NEEDED Status: Active Protocol: Document 02/13/18 14:25 GGD (Rec: 02/13/18 14:53 GGD [email or web address]) Physical Therapy Treatment Exercises Exercises Ankle Pumps Gluteal Sets Quad Sets Seated Knee Flexion/Extension Education Education Provided Precautions Safety M7 PT-IP Assessment and Plan Start: 02/13/18 12:16 Freq: NEEDED Status: Active Protocol: Document 02/13/18 14:25 GGD (Rec: 02/13/18 14:53 GGD [email or web address]) PT Summary Assessment and Plan Summary Assessment Summary Pt need assistance for bed mobility and cues for hip precautions. She was CGA for sit to stand due to use of momentum. She not safe for home D/C due to needing assist with mobility. She would benefit from SNF Rehab for improve functional mobility, strength improvements and safety. Frequency of Treatment Frequency Of Treatment Twice a Day Treatment Plan Other Recommendations and Next Treatment progress bed mobility, gait, Focus transfers; stair training when tolerable Recommendations To Nursing Amount of Assist Needed 1 Person Assist Discharge Recommendations PT Discharge Recommendations SNF Rehab
--- NOTE | 2018-02-13 14:37 | CM.DPC ---
[facility] auth packet faxed to [facility]
[2018-02-13 15:03] LABS: Bacteria Urine None Seen; RBC Urine None Seen (0-5/HPF); WBC Urine None Seen (0-5/HPF)
[2018-02-13 15:07] LABS: Appearance Urine UA CLEAR; Bilirubin Urine UA NEGATIVE (NEGATIVE); Color Urine UA YELLOW; Glucose Urine UA NEGATIVE (Negative); Ketones Urine UA NEGATIVE (NEGATIVE); Leukocyte Esterase Urine UA NEGATIVE (NEGATIVE); Nitrite Urine UA NEGATIVE (Negative); Occult Blood Urine UA NEGATIVE (Negative); Protein Urine UA NEGATIVE (Negative); Urobilinogen Urine UA 0.2 E.U./dL (0.2)
[2018-02-13 15:22] LABS: Culture Indicated Urine Cult Not Indicated; Squamous Epithelial Cell Urine 5-10 /HPF
[2018-02-13] MEDS: OXYCODONE IR 5 MG TABLET PO (16:31)
[2018-02-13] MEDS: LOSARTAN 50 MG TABLET PO (21:16)
[2018-02-14] VITALS: O2SAT 97
--- NOTE | 2018-02-14 00:12 | PC.NURSE ---
Shift Note: Received pt from evening shift. YOGHURT MAKER alerted me to pt requesting pain medication for 8/10 pain in right shoulder. This RN went into assess pt and found her to be crying, gripping the bed rails, and restless in bed. Pt demanding to know why she was in pain and if this is going to happen every night. Reoriented pt to situation and asked if pt remembered extensive teaching and education from previous night where this RN educated pt on post-operative course and complications she was experiencing, to which she denied occurred. After administration of 10mg Percolone per APR for 8/10 pain, now reported to be in right thigh, pt's pain behaviors stopped within 1-2 minutes and was reoriented to self, , situation, and place. Pt then remembered education and teaching from previous night but stated that this RN's face had changed. Will continue to monitor for s/sx of confusion and necessary pain management per APR.
[2018-02-14 05:15] VITALS: BP 122/57; PULSE 79; RESP 16; TEMP 36.9; O2SAT 95
[2018-02-14 05:40] LABS: Add Manual Diff / Slide Review NO; Basophils Percent Auto 0.7 % (0-2); Eosinophils Percent Auto 4.7 % (2-4); Hemoglobin 9.2 g/dL (12.0-16.0); Lymphocytes Percent Auto 32.2 % (25-40); Mean Corpuscular HGB Conc 35.4 % (30-36); Mean Corpuscular Hemoglobin 32.6 PG (26-34); Mean Corpuscular Volume 92.3 fL (80-100); Monocytes Percent Auto 9.2 % (3-14); Neutrophils Absolute Auto 4200 /uL (1500-7000); Neutrophils Percent Auto 53.2 % (50-75); Platelet Count 260 X10^3/uL (150-400); Red Blood Cell Count 2.81 X10^6/uL (4.0-5.2); Red Cell Distribution Width 13.7 % (11.6-14.8)
[2018-02-14 05:48] LABS: Blood Urea Nitrogen 20 mg/dL (7-17); Calcium 8.2 mg/dL (8.4-10.2); Carbon Dioxide 25 mmol/L (22-32); Chloride 102 mmol/L (98-107); Estimated Glomerular Filt Rate > 60.0 mL/min (>60); Glucose 95 mg/dL (80-110); HEMOLYSIS < 15 (0-50); Potassium 3.6 mmol/L (3.4-5.1); Sodium 135 mmol/L (137-145)
[2018-02-14 08:00] VITALS: BP 182/75; PULSE 73; RESP 16; TEMP 36.8; O2SAT 100
--- NOTE | 2018-02-14 08:01 | PM.DS.1 ---
History of Present Illness Date Patient Seen: 02/14/18 Time Patient Seen: 08:16 Chief complaint: discomfort and pain from hip replacement Narrative: History of Present Illness Date Patient Seen: 02/12/18 Time Patient Seen: 19:11 Chief complaint: discomfort and pain from hip replacement Narrative: This is a 82-year-old female patient who is status post right total hip arthroplasty 1 week ago that presents to the ER related to uncontrolled pain and inability to care for self home. The patient had a total hip on 02/01/2018 through an anterior approach. The patient felt she was doing well and was discharged to home. The patient states she did have home health services and had intermittent help short-term by friend who was a armored car guard and driver with the [employer]. The patient complains of increasing bruising and swelling of the right leg as well as a laceration of the left ankle from her walker which she states did not bleed but wept fluid. Patient does have a history of atrial fibrillation is presently on Eliquis and carvedilol as well as dofelitide for rhythm control. She underwent ablation in April of this year that has failed control the rhythm. She has had previous bilateral ankle swelling exacerbated by salt consumption. At this time she denies chest pain or shortness of breath. She denies headaches or dizziness, abdominal pain, nausea or vomiting. She has had constipation related to opiate use with the last bowel movement yesterday. Discharge Providers Date of admission: 02/12/18 18:19 Primary care physician: Eze Méndez MD Consults: 02/12/18 19:48 Consult to Dietitian, Adult Routine Comment: Reason For Exam: Bilateral pedal edema Consult to Discharge Planning Routine Comment: Consult to Occupational Therapy Evaluate & Treat Comment: Status post right FADY 1 week ago Physician Instructions: Evaluate and treat Consult to Physical Therapy Evaluate & Treat Comment: Status post right FADY 1 week ago Physician Instructions: Evaluate and Treat Discharge provider: Marty Holly DO Discharge Date: 02/14/18 Summary Discharge Diagnosis: STATUS POST RIGHT HIP ARTHROPLASTY. DC TO SNF FOR EXTENSIVE PHYSICAL AND OCCUPATIONAL THERAPY PHYSICAL DECONDITIONING ASSOCIATED ALSO WITH POSTOPERATIVE STATE. THIS IS TO [facility] UNSTEADY GAIT. PT/OT MORBID OBESITY. OUTPATIENT MANAGEMENT. EXTENSIVE COUNSELING GIVEN. PATIENT NEED LIFESTYLE CHANGES POSSIBLE CHF. SYSTOLIC VERSUS DIASTOLIC VERSUS COMBINED VS PRESERVED SYSTOLIC FUNCTION; LOW-SALT DIET. FLUID RESTRICTION. DIURETICS PULMONARY NODULE. THIS WAS INCIDENTAL FINDING. OUTPATIENT MANAGEMENT RECOMMENDED WEIGHT CT FOLLOW-UP ATRIAL FIBRILLATION.CONTINUE HOME MEDICATIONS HYPONATREMIA. IMPROVED ANEMIA CHRONIC DISEASE. MONITOR Hospital Course: THIS IS A VERY PLEASANT 82-YEAR-OLD FEMALE WHICH APPARENTLY RECENTLY UNDERWENT AN RIGHT HIP REPLACEMENT. PATIENT WAS DISCHARGED TO HOME AFTER THE PROCEDURE REPORTEDLY. PATIENT PRESENTED TO THE HOSPITAL WITH SIGNIFICANT PAIN TO THE RIGHT HIP AND DIFFICULTY TAKING CARE OF HERSELF. SHE REPORTED UNSTEADY GAIT WELL PHYSICAL DECONDITIONING. SHE WAS SEEN BY OUR TEAM AND PHYSICAL THERAPY WELL OCCUPATIONAL THERAPY WERE ORDERED. RECOMMENDATION WAS FOR PATIENT TO BE DISCHARGED TO A [facility] FACILITY FOR EXTENSIVE PHYSICAL THERAPY SHE AGREES. THERE WERE NO OTHER SIGNIFICANT ISSUES DURING THIS HOSPITAL STAY. PATIENT WILL BE DISCHARGED TO A [facility] FACILITY TODAY A BED BECAME AVAILABLE SHE WAS NOTED TO BE SIGNIFICANT FLUID OVERLOAD. SHE WAS STARTED AND CONTINUED ON LASIX. POTASSIUM REPLACEMENT WAS GIVEN. 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 PATIENT WAS INSTRUCTED TO WEAR TERESA HOSE AT ALL TIMES DURING THE DAY AND TO REMOVE PRIOR TO SLEEP ADDITIONAL DIURETICS COULD BE ADDED IF INDICATED. PATIENT ALSO WAS ORDERED ECHOCARDIOGRAM. THIS CAN BE FOLLOWED OUTPATIENT. SHE SHOULD BE WEIGHED DAILY. A FLUID RESTRICTION WAS ALSO ORDERED ON DISCHARGE WITH A TOTAL OF 1500 CC A DAY MAX. Status at Discharge Cognitive/behavioral status at discharge: STABLE TO [facility] FACILITY Functional status at discharge: independent ambulation Overall status at discharge: patient is back to baseline Time Spent with Patient Greater than 30 minutes Exam Vital Signs (past 8 hours): - 02/14/18 05:15 Temperature 98.4 F Pulse Rate 79 Respiratory Rate 16 Blood Pressure 122/57 L Pulse Oximetry 95 Oxygen Delivery Method Room Air Narrative Exam Narrative: NO ACUTE DISTRESS. PATIENT IS ALERT ORIENTED X2. VITAL SIGNS STABLE WITH SOME HTN NOTED HEAD ATRAUMATIC NORMOCEPHALIC NECK : SUPPLE WITHOUT ADENOPATHY NO CAROTID BRUITS EYE: EOMI, PERRLA, NORMAL CONJUNCTIVA; NO JAUNDICE CHEST: REGULAR RATE. NO RUBS. PMI IS NON DISPLACED. NO MURMURS; NORMAL S1-S2; SEVERE EDEMA TO BLE; NO JVD PULMONARY: DECREASED BS OVER THE BASES. MODERATE BIBASILAR CRACKLES NOTED; NO INCREASED DULLNESS TO PERCUSSION; MILD WHEEZING AT THE APICES ABDOMEN: SOFT. NONTENDER. NONDISTENDED. BOWEL SOUNDS ARE PRESENT IN ALL 4 QUADRANTS. NO MASS. OBESE EXTREMITIES: 4+ EDEMA. NO CYANOSIS CLUBBING NOTED. NEURO: CRANIAL NERVES 2-12 GROSSLY INTACT. NO FOCAL NEUROLOGICAL DEFICIT NOTED. MSK: DISCOMFORT WITH SOME ACTIVE AND PASSIVE ROM OF THE RT LE; CLOSED SURG INCISION NOTED; NO PURULENT DRAINAGE. SKIN: NORMAL FOR ETHNICITY; NO ECCHYMOSIS. NO LESION. GOOD TURGOR.; NO RASHES : NORMAL EXTERNAL GENITALIA. PSYCH : DEMENTIA; CALM AND COOPERATIVE. ALERT AWAKE ORIENTED X2 Objective Labs Result Diagrams: 02/14/18 05:22 02/14/18 05:22 Labs: Laboratory Results - last 24 hr 02/13/18 02/14/18 02/14/18 14:50 05:22 05:22 WBC 8.0 RBC 2.81 L Hgb 9.2 L Hct 26.0 L MCV 92.3 MCH 32.6 MCHC 35.4 RDW 13.7 Plt Count 260 Neut % (Auto) 53.2 Lymph % (Auto) 32.2 [place] % (Auto) 9.2 Eos % (Auto) 4.7 H Baso % (Auto) 0.7 Neut # (Auto) 4200 Sodium 135 L Potassium 3.6 Chloride 102 Carbon Dioxide 25 BUN 20 H Creatinine 0.80 Estimated GFR > 60.0 BUN/Creatinine Ratio 25.0 H Glucose 95 Calcium 8.2 L Urine Color Yellow Urine Appearance Clear Urine pH 6.0 Ur Specific [place] 1.010 Urine Protein Negative Urine Glucose (UA) Negative Urine Ketones Negative Urine Occult Blood Negative Urine Nitrate Negative Urine Bilirubin Negative Urine Urobilinogen 0.2 Ur Leukocyte Esterase Negative Urine RBC None seen Urine WBC None seen Ur Squamous Epith Cells 5-10 /hpf H Urine Bacteria None seen Ur Culture Indicated? Cult not indicated Micro UA Comment Not Reportable Discharge Plan Discharge Plan Patient Disposition: SNF Transportation: Facility vehicle I certify the postop hospital [facility] care is medically necessary on a continuing basis for any conditions for which he/ she received care during this hospitalization.: Yes The receiving facility has agreed to accept transfer and provide medical treatment.: Yes Discharge Med Rec/Prescriptions Prescriptions: New polyethylene glycol 3350 17 gram Powder In Packet 17 gm PO DAILY Qty: 14 RF: 0 sennosides [senna] 8.6 mg tablet 8.6 mg PO BEDTIME Qty: 60 RF: 0 omega-3 fatty acids [Fish Oil Concentrate] 1,000 mg capsule 1,000 mg PO DAILY Qty: 60 RF: 0 niacin 500 mg capsule, extended release 500 mg PO BEDTIME Qty: 60 RF: 0 potassium chloride 10 mEq capsule, extended release 10 meq PO BID Qty: 60 RF: 0 furosemide [Lasix] 20 mg tablet 60 mg PO DAILY Qty: 90 RF: 0 tramadol 50 mg tablet 50 mg PO Q12HR Qty: 30 RF: 0 oxycodone 5 mg capsule 5 mg PO Q4-6H PRN (Reason: pain) Qty: 20 RF: 0 Continue carvedilol 25 mg Tablet 25 mg PO BID RF: 0 dofetilide 125 mcg Capsule 125 mcg PO Q12H RF: 0 acetaminophen [Tylenol Extra Strength] 500 mg Tablet 500 mg PO PRN PRN (Reason: pain) RF: 0 docusate sodium 100 mg Capsule 100 mg PO DIRECTED RF: 0 apixaban [Eliquis] 2.5 mg Tablet 2.5 mg PO BID RF: 0 losartan 50 mg Tablet 50 mg PO DAILY RF: 0 Discontinued oxycodone 5 mg Tablet 2.5 - 5 mg PO Q4H PRN (Reason: pain) RF: 0 Follow up/Referrals: Eze Méndez MD [Primary Care Provider] - Discharge Health Status Brief summary of current health status: DC TO SNF F/U WITH PCP 3-10 DAYS F/U WITH ORTHO PREVIOUSLY ORDERED CARDIAC LOW SALT DIET WEAR TERESA HOSE AT ALL TIME DURING THE DAY; REMOVE AT NIGHT RESTRICT ALL FLUIDS TO 1500CC/DAY MAX KEEP LOWER EXT ELEVATED WHILE SITTING ENCOURAGE ACT SYLVIE AMBULATE TID OR MORE SYLVIE Provider Discharge Instructions Diet: Low-fat, Low-sodium and Low-cholesterol Food texture: Regular Skin/Wound/Dressing Care Report to your healthcare provider any signs of infection, such as:: chills, fever, night sweats, increased pain, unusual drainage and unusual redness Discharge Data Primary Care Provider: Eze Méndez Attending Provider: Marty Holly Admit Date/Time: 02/12/18 18:19 Discharges patient from system. Discharge Date/Time: 02/14/18 11:00 Quality VTE Deep Vein Thrombosis/Pulmonary Embolism Present on Admission: No
[2018-02-14] MEDS: DOFETILIDE 125 MCG 125 EACH PO (08:36)
[2018-02-14] MEDS: DOCUSATE 100 MG CAPSULE PO (08:38)
[2018-02-14] MEDS: APIXABAN 5 MG TABLET 2.5 MG PO (08:38)
[2018-02-14] MEDS: BACLOFEN 10 MG TABLET PO (08:38)
[2018-02-14] MEDS: CARVEDILOL 25 MG TABLET PO (08:39)
[2018-02-14] MEDS: POLYETHYLENE GLYCOL 3350 17 GM POWD.PACK PO (08:39)
[2018-02-14] MEDS: FUROSEMIDE 40 MG/4 ML VIAL IV (08:39)
[2018-02-14] MEDS: OXYCODONE IR 5 MG TABLET PO (08:43)
--- NOTE | 2018-02-14 09:18 | CM.DPC ---
D/C packet faxed to [facility]
--- NOTE | 2018-02-14 09:19 | CM.DPC ---
DCP: continued. [place] back from [facility] yesterday 1600. She stated pt was very appropriate for snf setting and [facility] would authorize the stay. Pt and Dr. Cruz are updated. Orders are in now for d/c to [facility]. Pt says she is delighted. [facility] is updated. Has set up van transport for 1100 today. [facility] is updated. [facility]: will be completed and faxed. Reviewed final orders and [facility] is efaxing these now to [facility]. Will follow prn until pt leaves.
[2018-02-14 09:32] VITALS: O2SAT 96
--- NOTE | 2018-02-14 09:39 | PC.NURSE ---
Pt is forgeful at times, but seems to be A&Ox3. She is manipulative with staff, but compliant with care. R. lower extremity with 4+ edema and some bruising. She has a small wound on her l.lane that is a skin tear obtained by bumping into walker. It has been draining clear liquid. Pt is sitting up in her chair and legs were elevated but pt stated that is hurt her in that position. She is sitting up in her room, and oxycodone given to patient.
== END 2018-02-14 11:00 ==
LOC: ED 15:42 → AC 18:27
PROVIDERS: Nurse Practitioner Adult Health; Admitting Provider Hospitalist; Emergency Provider Emergency Medicine; PCP Family Medicine; Visit Provider Hospitalist
DX: T84.84XA Pain due to internal orthopedic prosthetic devices, implants and grafts, initial encounter (principal); I48.91 Unspecified atrial fibrillation; Z79.01 Long term (current) use of anticoagulants; Z87.891 Personal history of nicotine dependence; Z66 Do not resuscitate; R60.0 Localized edema; R26.81 Unsteadiness on feet; E87.1 Hypo-osmolality and hyponatremia; E87.70 Fluid overload, unspecified; E66.9 Obesity, unspecified; Z96.641 Presence of right artificial hip joint; D64.9 Anemia, unspecified; R91.1 Solitary pulmonary nodule
CPT/HCPCS: 36415; 71045; 73502; 80048; 80053; 81001; 81003; 82550; 82553; 83735; 83880; 84145; 84484; 85025; 85610; 85730; 93005; 96374; 96375; 97110; 97162; 97165; 97530; 97535; 99285; G0378; J1170; J1940

== ENCOUNTER 2018-11-03 15:46 | Emergency (ER) | payer OTHER, SELFPAY ==
[2018-10-01 13:25] VITALS: BMI 33.0
[2018-11-03 15:53] VITALS: BP 199/84; PULSE 60; RESP 18; TEMP 36.6; O2SAT 100
== END 2018-11-03 17:55 | disposition left against medical advice (07) ==
PROVIDERS: Emergency Provider Emergency Medicine; Family Provider Family Medicine; PCP Family Medicine
DX: R10.9 Unspecified abdominal pain (principal)
CPT/HCPCS: 99282

== ENCOUNTER → 2018-11-09 10:25 | Outpatient (CLI) | payer OTHER, SELFPAY ==
[2018-10-01 13:25] VITALS: BMI 33.0
--- NOTE | 2018-11-09 | DI.CT.S_ITS ---
PROCEDURE: CT ABDOMEN W CON INDICATIONS: PERIUMBILICAL ABDOMINAL PAIN TECHNIQUE: After the administration of oral and intravenous contrast, 5 mm thick sections acquired from the diaphragms to the iliac crests. 5 mm thick coronal and sagittal reformats were acquired. For radiation dose reduction, the following was used: automated exposure control, adjustment of mA and/or kV according to patient size. COMPARISON: None. FINDINGS: Image quality: Excellent. Lung bases: Lung bases are clear. Heart size is normal. Solid organs: Liver is normal in size and enhancement. Gallbladder is unremarkable. Biliary system is non dilated. Pancreas enhances normally. Spleen is normal in size and enhancement. No adrenal nodules. Kidneys are normal in size, without hydronephrosis. Peritoneum and bowel: Contrast enhanced bowel loops appear normal in caliber. No free fluid or air. Nodes and vessels: No retroperitoneal or mesenteric adenopathy by size criteria. Aorta and inferior vena cava are normal in size. Bones: No suspicious bony lesions. No vertebral body compression fractures. Miscellaneous: Supraumbilical ventral hernia is present containing transverse colon. There is approximately a 7.9 cm diastases of the rectus musculature. There is no evidence of incarceration or strangulation. IMPRESSION: 1. Transverse colon containing supraumbilical ventral hernia as above. Dictated by: Delicia Hendricks M.D. on 11/09/2018 at 13:37 Approved by: Delicia Hendricks M.D. on 11/09/2018 at 14:53
[2018-11-09 11:05] LABS: BUN Creatinine Ratio 21.4 (6-22); Blood Urea Nitrogen 15 mg/dL (7-17); Carbon Dioxide 27 mmol/L (22-32); Chloride 103 mmol/L (98-107); Estimated Glomerular Filt Rate > 60.0 mL/min (>60); Glucose 84 mg/dL (80-110); HEMOLYSIS < 15 (0-50); Potassium 4.5 mmol/L (3.4-5.1); Sodium 138 mmol/L (137-145)
== END ==
PROVIDERS: PCP Family Medicine; Visit Provider Family Medicine
DX: R10.33 Periumbilical pain (principal); K43.9 Ventral hernia without obstruction or gangrene; R19.09 Other intra-abdominal and pelvic swelling, mass and lump
CPT/HCPCS: 36415; 74160; 80048; Q9967

== ENCOUNTER 2018-12-28 10:50 | Observation (INO) | payer OTHER, SELFPAY ==
[2018-10-01 13:25] VITALS: BMI 33.0
[2018-12-22 08:44] VITALS: BMI 28.2
[2018-12-28 11:04] VITALS: BMI 28.2
[2018-12-28 11:29] VITALS: BP 175/78; PULSE 60; RESP 15; TEMP 36; O2SAT 99; BMI 28.2
[2018-12-28] MEDS: LACTATED RINGERS 1,000 ML 100 ML IV (11:49)
[2018-12-28 13:36] LABS: Creatine Kinase 82 U/L (30-135)
[2018-12-28 13:49] LABS: Troponin I 0.078 ng/mL (0.01-0.034)
--- NOTE | 2018-12-28 15:44 | PM.HP.1 ---
History of Present Illness History of Present Illness Date Patient Seen: 12/28/18 Time Patient Seen: 15:45 Chief complaint: Hernia Repair Narrative: Is a 3-year-old female who presents today for elective ventral hernia repair. Our way to the hospital today she developed some chest pain has a history of atrial fibrillation felt that she was in arrhythmia. During the course for travel she spontaneously converted to normal sinus rhythm. She is seen in the preoperative area where she has no further chest pain no nausea vomiting arm pain. An EKG was performed that demonstrates normal sinus rhythm and a troponin was drawn which demonstrates a troponin of 0.078. Patient History Medical History (Updated 12/28/18 @ 19:28 by Jamin Solorio MD) Anxiety (Acute) Arthritis (Acute) Atrial fibrillation (Acute) Easy bruisability (Acute) Eczema (Acute) GERD (gastroesophageal reflux disease) (Acute) Non-ulcer dyspepsia (Acute) UTI (urinary tract infection) (Acute) Surgical History (Updated 12/22/18 @ 08:47 by Krystina Monson RN) History of cataract surgery (Acute) History of inguinal hernia repair (Acute) History of radiofrequency ablation procedure for cardiac arrhythmia (Acute) Status post right hip replacement (Acute 01/31/18) Status post surgery (09/12/08) Family & Social History Social History: household members none Prior Living Arrangements House Safety & Behavioral: Feels Safe in Current Yes Environment Been Physically Hurt or No Threatened By a Person Suicidal Ideation Description None Suicide Plan Description No Plan Tobacco & Substance use: Smoking Status Former smoker alcohol intake never alcohol intake frequency 0-2 drinks per day Substance Use Type does not use Meds Home Medications and Allergies Home Medications Medication Instructions Recorded Confirmed Type Eliquis 2.5 mg PO BID 02/12/18 12/28/18 History acetaminophen [Tylenol Extra 500 mg PO PRN PRN 02/12/18 12/28/18 History Strength] carvedilol 25 mg PO BID 02/12/18 12/28/18 History dofetilide 125 mcg PO Q12H 02/12/18 12/28/18 History losartan 25 mg PO BID 02/13/18 12/28/18 History Allergies Allergy/AdvReac Type Severity Reaction Status Date / Time No Known Drug Allergies Allergy Verified 12/28/18 11:13 Review of Systems Review of Systems ROS Unobtainable: All systems reviewed & are unremarkable except as noted in HPI and below Exam Vital Signs (past 8 hours): - 12/28/18 11:29 Temperature 96.8 F L Pulse Rate 60 Respiratory Rate 15 Blood Pressure 175/78 H Pulse Oximetry 99 Oxygen Delivery Method Room Air Narrative Exam Narrative: General-no acute distress, well nourished HEENT-moist mucous membranes, no scleral icterus Neck-supple, no lymphadenopathy Chest- non labored respirations, clear to auscultation bilaterally Cardiac-regular rate no peripheral edema Abdomen-soft, nontender, non distended Extremities-warm, well perfused Neurological-alert and oriented, no focal deficits Objective Labs Result Diagrams: 12/28/18 19:15 12/28/18 19:15 Labs: Laboratory Results - last 24 hr 12/28/18 13:20 Total Creatine Kinase 82 CK-MB (CK-2) TNP CK-MB (CK-2) Rel Index TNP Troponin I 0.078 H Assessment & Plan Assessment and plan (1) Elevated troponin: Current visit: Yes Status: Acute Assessment & Plan narrative: This 83-year-old female who was scheduled to undergo an elective open ventral hernia repair and developed an elevated troponin level prior to the operation. The operation has been canceled she did not proceed from preop to the OR. On her travel to the hospital today she developed atrial fibrillation and chest pain which spontaneously converted to normal sinus rhythm and resolution of the chest pain, however troponin was drawn in preop which demonstrates 0.078 and a normal EKG. She is hemodynamically stable has no chest pain. Observation. Trend troponin. Cardiology consulted, we appreciate their recommendations and will move forward with a stress test. Electrolyte repletion Telemetry
[2018-12-28 16:05] VITALS: BP 173/77; PULSE 56; RESP 18; TEMP 36.2; O2SAT 99
--- NOTE | 2018-12-28 16:19 | SUR.PREOP ---
Patient's procedure cancelled. Report called to [facility]. Patient transferred to the floor with belongings bag, red bag, watch and black bracelet and water bottle. Patient had been ambulating independently. IV saline locked.
--- NOTE | 2018-12-28 17:49 | DI.NM.S_ITS ---
PROCEDURE: NM ANTONIO PERF SPECT R&S PHARM Rest and pharmacological stress myocardial perfusion SPECT with gated imaging and ejection fraction RADIOPHARMACEUTICAL: 26.2 mCi Tc-99m tetrafosmin IV at rest and 26.6 mCi Tc-99m tetrafosmin IV at peak effect of pharmacological stress. Son-ajg-ezrmozpy was performed. INDICATIONS: Atrial fib and elevated trop COMPARISON: None. CARDIAC STRESS: A pharmacologic stress test was performed under the supervision of an attending staff, using an infusion of Lexiscan . Hemodynamic data: There is normal blood pressure and heart rate response to pharmacologic stress. Symptoms: The patient denied anginal chest pain. Aminophylline: Not given EKG: No diagnostic changes of ischemia; no ectopy. FINDINGS: Raw data: There is good myocardial uptake of radiotracer. No significant motion artifacts. Arpi-rf-dfgkq ratio is 0.44 (normal is less than 0.38 for tetrafosmin tracer). Left ventricle function: Gated images demonstrate normal left ventricular wall thickening. No segmental wall motion abnormalities. No transient ischemic dilation; TID is 1.12 (normal less than 1.3). Left ventricle resting end diastolic volume is 87 mL. Left ventricle stress ejection fraction is >75% ; normal range is above 45%. Myocardial perfusion: There is a small, mild apical and apical septal defect on supine imaging both at stress and rest which almost resolves on prone imaging. Otherwise normal distribution of activity in the left ventricular myocardium. No fixed or reversible perfusion defects. IMPRESSION: -Normal myocardial perfusion study without evidence of ischemia or scar. -The small apical and apical septal defect improves on prone imaging and has normal contractility on gated images, consistent with attenuation artifact. -Overall this is a low-risk study. -The results were communicated to the primary team at the conclusion of the exam. Dictated by: Jose Antonio Downing M.D. on 12/31/2018 at 0:26 Approved by: Jose Antonio Downing M.D. on 12/31/2018 at 0:31
--- NOTE | 2018-12-28 17:50 | DI.ECHO.S_ITS ---
[place] +---------+ [facility] +---------+ : : [address] : [address] : : : : [id number] : : : : Phone: [phone]+ Echocardiogram Report + + :Name: DARLEEN MCCARTNEY Study Date: 12/29/2018 Height: 66 in : :[facility] Weight: 175 lb : : Gender: Female BSA: 1.9 m2 : :: 1935 Age: 83 yrs BP: 157/72 mmHg: :Reason For Study: CHEST PAIN : : Performed By: [facility] Staff : :Referring: VOLODYMYR JENKINS : + + Interpretation Summary The left ventricle is normal in size. Left ventricular systolic function is normal. The ejection fraction is estimated to be 65-70%. Left ventricular wall motion is normal. Probable evidence for increased LV end-diastolic pressures. Clincal correlation is recommended for diastolic CHF. The right ventricle is normal in size and function. The right ventricular systolic pressure is estimated to be at least 42 mmHg based on an estimated right atrial pressure of 8 mm Hg. The left atrium is moderately dilated. The right atrium is mildly dilated. There is mild mitral regurgitation. There is no other significant valvular heart disease. The aortic root is normal size. Procedure: A two-dimensional transthoracic echocardiogram with color flow and Doppler was performed. The study quality was technically adequate. There is no prior echocardiogram noted for this patient. The patient was in normal sinus rhythm during the exam. Left Ventricle: The left ventricle is normal in size. There is normal left ventricular wall thickness. Left ventricular systolic function is normal. The ejection fraction is estimated to be 65-70%. Left ventricular wall motion is normal. Probable evidence for increased LV end-diastolic pressures. Clincal correlation is recommended for diastolic CHF. Right Ventricle: The right ventricle is normal in size and function. Atria: The left atrium is moderately dilated. The right atrium is mildly dilated. The interatrial septum is intact with no evidence for an atrial septal defect. Mitral Valve: The mitral valve leaflets are mildly calcified. There is mild to moderate mitral annular calcification. There is mild mitral regurgitation. Aortic Valve: The aortic valve is trileaflet. There is minimally reduced leaflet mobility. There is mild aortic valve sclerosis. There is trace aortic regurgitation. Tricuspid Valve: The tricuspid valve is normal in structure and function. There is mild tricuspid regurgitation. The right ventricular systolic pressure is estimated to be at least 42 mmHg based on an estimated right atrial pressure of 8 mm Hg. Pulmonic Valve: The pulmonic valve is normal in structure and function. There is trace pulmonic regurgitation. There is no other significant valvular heart disease. Great Vessels: The aortic root is normal size. The dimensions of the ascending aorta are normal. The pulmonary artery is normal size. The IVC is dilated (diameter is greater than 2.1 cm) yet it collapses greater than 50% with a sniff. This suggests a right atrial pressure of 8 mm Hg. Pericardium/ Pleura There is no pericardial effusion. There is no pleural effusion. MMode/2D Measurements & Calculations LVIDd: 4.2 cm LVOT diam: 2.0 cm LVIDs: 2.9 cm Ao root diam: 3.2 cm FS: 32.6 % Aortic Jxn: 2.6 cm EPSS: 0.37 cm asc Aorta Diam: 3.0 cm IVSd: 1.0 cm LVPWd: 0.97 cm LV mcmahon. diameter/BSA (cm/m^2): 2.2 LV sys. diameter/BSA (cm/m^2): 1.5 LA A2 area: 26.1 cm2 RA long axis: 5.1 cm LA A4 area: 25.4 cm2 RA area: 19.1 cm2 LA length (vol): 6.3 cm RA vol: 60.0 ml LA vol: 89.3 ml RA : 31.7 ml/m2 LA vol index: 47.3 ml/m2 IVC diam: 2.0 cm TAPSE: 2.7 cm Doppler Measurements & Calculations Ao V2 max: 181.8 cm/sec LVOT Max Raad: 105.2 cm/sec Ao V2 mean: 124.6 cm/sec LV V1 max P.4 mmHg Ao max P.2 mmHg LV V1 VTI: 28.6 cm Ao mean P.1 mmHg MARYSOL(I,D): 1.9 cm2 Ao V2 VTI: 46.8 cm MARYSOL(V,D): 1.8 cm2 sev ratio: 0.61 MARYSOL indexed to BSA (cm^2/m^2): 0.98 MV E max raad: 112.0 cm/sec TR max raad: 294.6 cm/sec MV A max raad: 26.6 cm/sec TR max P.7 mmHg MV E/A: 4.2 PA V2 max: 53.7 cm/sec Med Peak E' Raad: 5.5 cm/sec PA V2 mean: 39.4 cm/sec E/E' med: 20.5 PA mean P.68 mmHg Lat Peak E' Raad: 5.6 cm/sec PA Accel Time: 0.13 sec E/E' lat: 20.1 E/e' average: 20.3 MV dec time: 0.23 sec SV(LVOT): 87.0 ml Reading Physician:01:52 PM
[2018-12-28 19:01] VITALS: BP 163/79; PULSE 58
[2018-12-28] MEDS: LOSARTAN 25 MG TABLET PO (19:01)
[2018-12-28 19:06] VITALS: BP 163/79; PULSE 58
[2018-12-28] MEDS: carvediloL 25 MG TABLET PO (19:06)
[2018-12-28 19:26] LABS: Add Manual Diff / Slide Review NO; Basophils Absolute Auto 100 /uL (0-100); Basophils Percent Auto 0.7 % (0-2); Eosinophils Absolute Auto 200 /uL (0-450); Eosinophils Percent Auto 2.1 % (2-4); Hematocrit 40.1 % (36-46); Hemoglobin 13.5 g/dL (12.0-16.0); Lymphocytes Absolute Auto 2800 /uL (1100-4500); Mean Corpuscular HGB Conc 33.6 % (30-36); Mean Corpuscular Hemoglobin 31.6 PG (26-34); Monocytes Absolute Auto 500 /uL (0-900); Monocytes Percent Auto 6.9 % (3-14); Neutrophils Absolute Auto 3800 /uL (1500-7000); Neutrophils Percent Auto 52.3 % (50-75); Platelet Count 143 X10^3/uL (150-400); Red Blood Cell Count 4.26 X10^6/uL (4.0-5.2); Red Cell Distribution Width 13.9 % (11.6-14.8); White Blood Cell Count 7.3 X10^3/uL (4.5-11.0)
[2018-12-28 19:38] LABS: BUN Creatinine Ratio 22.2 (6-22); Blood Urea Nitrogen 20 mg/dL (7-17); Calcium 8.9 mg/dL (8.4-10.2); Carbon Dioxide 26 mmol/L (22-32); Chloride 103 mmol/L (98-107); Creatine Kinase 86 U/L (30-135); Estimated Glomerular Filt Rate > 60.0 mL/min (>60); Glucose 155 mg/dL (80-110); HEMOLYSIS < 15 (0-50); Magnesium 2.3 mg/dL (1.6-2.3); Potassium 4.1 mmol/L (3.4-5.1); Sodium 136 mmol/L (137-145)
--- NOTE | 2018-12-28 19:44 | PC.NURSE ---
[place] shift note: Received patient from PACU due to cancelled surgery, placed on Tele. No c/o chest pain, SOB or dizziness. Independently ambulating in room, cooperative and pleasant. NSR. Call light within reach. Oriented to room, environment, and plan of care.
[2018-12-28 19:50] LABS: Troponin I 0.092 ng/mL (0.01-0.034)
--- NOTE | 2018-12-28 19:55 | PC.NURSE ---
Addendum entered by Wilma Dozier R.N. 12/28/18 20:52: Also notified Ernesto MONTE regarding Home med Eliquis PO, holding for now. Original Note: Event note: Notified Ernesto MONTE regarding Troponin level at 1915 0.092
[2018-12-28 20:00] VITALS: BP 192/86; PULSE 55; RESP 17; TEMP 36.7; O2SAT 100
[2018-12-28 20:18] LABS: TSH w/ Reflex to FT4 1.14 uIU/mL (0.47-4.68)
[2018-12-28] MEDS: SODIUM CHLORIDE 0.9% FLUSH 10 ML IV (21:36)
[2018-12-28 23:20] LABS: RBC Urine None Seen (0-5/HPF)
[2018-12-28 23:27] LABS: Appearance Urine UA CLEAR; Bilirubin Urine UA NEGATIVE (NEGATIVE); Color Urine UA YELLOW; Glucose Urine UA NEGATIVE (Negative); Ketones Urine UA NEGATIVE (NEGATIVE); Leukocyte Esterase Urine UA 2+ (NEGATIVE); Nitrite Urine UA NEGATIVE (Negative); Occult Blood Urine UA NEGATIVE (Negative); Protein Urine UA NEGATIVE (Negative); Specific Gravity Urine UA <=1.005 (1.000-1.035); Urobilinogen Urine UA 0.2 E.U./dL (0.2)
[2018-12-28 23:35] LABS: pH Urine UA 6.5 (4.5-8.0)
[2018-12-28 23:51] LABS: Bacteria Urine Moderate (10-30); Culture Indicated Urine Cult Not Indicated; Squamous Epithelial Cell Urine 5-10 /HPF (0-5/HPF); WBC Urine 1-5/HPF (0-5/HPF)
[2018-12-29] VITALS (11 sets, daily range): BP systolic 122–162; BP diastolic 54–96; PULSE 58–72; RESP 16–20; TEMP 36.1–36.9; O2SAT 98–100
[2018-12-29 01:23] LABS: Creatine Kinase 78 U/L (30-135)
[2018-12-29 01:36] LABS: Troponin I 0.081 ng/mL (0.01-0.034)
[2018-12-29 05:20] LABS: Blood Urea Nitrogen 18 mg/dL (7-17); Calcium 8.3 mg/dL (8.4-10.2); Carbon Dioxide 23 mmol/L (22-32); Chloride 106 mmol/L (98-107); Estimated Glomerular Filt Rate > 60.0 mL/min (>60); Glucose 84 mg/dL (80-110); HEMOLYSIS < 15 (0-50); Magnesium 2.2 mg/dL (1.6-2.3); Phosphorous 3.6 mg/dL (2.8-4.1); Potassium 3.8 mmol/L (3.4-5.1); Sodium 135 mmol/L (137-145)
[2018-12-29] MEDS: LOSARTAN 25 MG TABLET PO ×2 (08:12→21:14)
[2018-12-29] MEDS: carvediloL 25 MG TABLET PO ×2 (08:13→21:13)
[2018-12-29] MEDS: SODIUM CHLORIDE 0.9% FLUSH 10 ML IV ×2 (08:16→21:25)
--- NOTE | 2018-12-29 08:21 | PC.NURSE ---
Pt was insistent on having her Dofetilide at exactly 0800. Medication was not ready from pharmacy at this time and pt took her own personal med at the bedside.
--- NOTE | 2018-12-29 09:56 | PC.NURSE ---
Student Nurse Note: 10:00am Pt has been teary and crying this morning, d/t concerns for her health going forward. She will go for an ECHO as well as a stress test today and will be evaluated from there. SBP elevated in the upper 150's, HR normal, sinus rhythm, reports no pain, no chest pain, no SOB. Pt walks independently in room as well as uses the bathroom independently. SCDs are not on while she is ambulating. 1030 ECHO in room
--- NOTE | 2018-12-29 15:03 | PM.TREADMILL ---
Cardiac Stress Test Report Referral & Results Date Patient Seen: 12/29/18 Time Patient Seen: 15:00 Requesting provider: Tamie Barillas Indication: Afib Rest ECG: NSR Procedure Note: After both written and verbal informed consent the patient had an IV started by the diagnostic imaging RN and then was hooked up to the treadmill monitoring system. The patient was placed on the treadmill at 1 mile an hour with no elevation and was then injected with the Eva scan material. The Cardiolite was then immediately administered. The patient spent an additional 2-3 minutes on the treadmill before being returned to the [facility] in the supine position. The patient had a normal response to all infused materials. No change in rhythm. No signs or symptoms of angina. Impression: Successful Eva protocol. Will await perfusion imaging. Please note: Actual ECG tracings can be found in the PACS system.
--- NOTE | 2018-12-29 16:59 | PM.CN ---
History of Present Illness Consult details Date Patient Seen: 12/28/18 Chief complaint: Hernia Repair Reason for consult: Troponin elevation Requesting provider: Jamin Solorio Narrative: This is a mauro and overall healthy 83 y/o female with longstanding history of drug and ablation refractory, paroxysmal atrial fibrillation who is admitted after she was found to have troponin elevation during the periprocedural work up. She was scheduled to undergo an elective ventral hernia repair surgery today. However, she developed atrial fibrillation around midnight. She followed her primary thimble press operator's recommendation to manage these paroxysms by taking additional beta harley and magnesium but the episode persisted. She finally slept through the night and [place] and potentially proceed with her surgery. She converted spontaneously around 9am. Upon arrival to the hospital, she was evaluated with an electrocardiogram and a troponin level which was found to be elevated. Patient denies any chest discomfort during this episode but felt lightheaded as she generally does with her episodes. [facility] Medical History Anxiety (Acute) Arthritis (Acute) Atrial fibrillation (Acute) Easy bruisability (Acute) Eczema (Acute) GERD (gastroesophageal reflux disease) (Acute) Non-ulcer dyspepsia (Acute) UTI (urinary tract infection) (Acute) Surgical History History of cataract surgery (Acute) History of inguinal hernia repair (Acute) History of radiofrequency ablation procedure for cardiac arrhythmia (Acute) Status post right hip replacement (Acute 01/31/18) Status post surgery (09/12/08) Family History Father Cardiovascular disease Atrial fibrillation Mother Alzheimer's dementia Social History details: Lives on [facility] household members: none Smoking Status: Former smoker alcohol intake: never Meds Home Medications and Allergies Home Medications Medication Instructions Recorded Confirmed Type Eliquis 2.5 mg PO BID 02/12/18 12/28/18 History acetaminophen [Tylenol Extra 500 mg PO PRN PRN 02/12/18 12/28/18 History Strength] carvedilol 25 mg PO BID 02/12/18 12/28/18 History dofetilide 125 mcg PO Q12H 02/12/18 12/28/18 History losartan 25 mg PO BID 02/13/18 12/28/18 History Allergies Allergy/AdvReac Type Severity Reaction Status Date / Time No Known Drug Allergies Allergy Verified 12/28/18 11:13 Review of Systems Review of Systems ROS Unobtainable: All systems reviewed & are unremarkable except as noted in HPI and below Exam Vital Signs (past 8 hours): - 12/29/18 12:00 12/29/18 15:54 Temperature 97.9 F 97.6 F Pulse Rate 58 L 72 Respiratory Rate 16 20 Blood Pressure 150/71 H 162/96 H Pulse Oximetry 100 100 Oxygen Delivery Method Room Air Oxygen Flow Rate 0 Const General: cooperative, healthy appearing, comfortable, well developed and well groomed [facility] Head: normal to inspection, normocephalic and atraumatic Neck Neck: supple and No JVD Other: No carotid bruit Chest Chest: No tenderness Resp Effort & Inspection: normal respiratory effort Auscultation: clear to auscultation bilaterally Cardio Rate: regular rate Rhythm: regular rhythm Heart Sounds: no gallops and no murmurs GI Palpation: soft and No tender Skin General: No no rashes or lesions noted Extrem Right lower extremity: no edema Left lower extremity: no edema Objective Labs Result Diagrams: 12/28/18 19:15 12/29/18 04:40 Labs: Laboratory Results - last 24 hr 12/28/18 12/28/18 12/28/18 19:15 19:15 19:15 WBC 7.3 RBC 4.26 Hgb 13.5 Hct 40.1 MCV 94.0 MCH 31.6 MCHC 33.6 RDW 13.9 Plt Count 143 L Neut % (Auto) 52.3 Lymph % (Auto) 38.0 [place] % (Auto) 6.9 Eos % (Auto) 2.1 Baso % (Auto) 0.7 Neut # (Auto) 3800 Lymph # (Auto) 2800 [place] # (Auto) 500 Eos # (Auto) 200 Baso # (Auto) 100 Sodium 136 L Potassium 4.1 Chloride 103 Carbon Dioxide 26 BUN 20 H Creatinine 0.90 Estimated GFR > 60.0 BUN/Creatinine Ratio 22.2 H Glucose 155 H Calcium 8.9 Phosphorus Magnesium 2.3 Total Creatine Kinase 86 CK-MB (CK-2) TNP CK-MB (CK-2) Rel Index TNP Troponin I 0.092 H TSH Urine Color Urine Appearance Urine pH Ur Specific [place] Urine Protein Urine Glucose (UA) Urine Ketones Urine Occult Blood Urine Nitrate Urine Bilirubin Urine Urobilinogen Ur Leukocyte Esterase Urine RBC Urine WBC Ur Squamous Epith Cells Urine Bacteria Ur Culture Indicated? Micro UA Comment 12/28/18 12/28/18 12/29/18 19:15 22:27 01:00 WBC RBC Hgb Hct MCV MCH MCHC RDW Plt Count Neut % (Auto) Lymph % (Auto) [place] % (Auto) Eos % (Auto) Baso % (Auto) Neut # (Auto) Lymph # (Auto) [place] # (Auto) Eos # (Auto) Baso # (Auto) Sodium Potassium Chloride Carbon Dioxide BUN Creatinine Estimated GFR BUN/Creatinine Ratio Glucose Calcium Phosphorus Magnesium Total Creatine Kinase 78 CK-MB (CK-2) TNP CK-MB (CK-2) Rel Index TNP Troponin I 0.081 H TSH 1.14 Urine Color Yellow Urine Appearance Clear Urine pH 6.5 Ur Specific [place] <=1.005 Urine Protein Negative Urine Glucose (UA) Negative Urine Ketones Negative Urine Occult Blood Negative Urine Nitrate Negative Urine Bilirubin Negative Urine Urobilinogen 0.2 Ur Leukocyte Esterase 2+ H Urine RBC None seen Urine WBC 1-5/hpf Ur Squamous Epith Cells 5-10 /hpf H Urine Bacteria Moderate (10-30) H Ur Culture Indicated? Cult not indicated Micro UA Comment * 12/29/18 04:40 WBC RBC Hgb Hct MCV MCH MCHC RDW Plt Count Neut % (Auto) Lymph % (Auto) [place] % (Auto) Eos % (Auto) Baso % (Auto) Neut # (Auto) Lymph # (Auto) [place] # (Auto) Eos # (Auto) Baso # (Auto) Sodium 135 L Potassium 3.8 Chloride 106 Carbon Dioxide 23 BUN 18 H Creatinine 0.90 Estimated GFR > 60.0 BUN/Creatinine Ratio 20.0 Glucose 84 Calcium 8.3 L Phosphorus 3.6 Magnesium 2.2 Total Creatine Kinase CK-MB (CK-2) CK-MB (CK-2) Rel Index Troponin I TSH Urine Color Urine Appearance Urine pH Ur Specific [place] Urine Protein Urine Glucose (UA) Urine Ketones Urine Occult Blood Urine Nitrate Urine Bilirubin Urine Urobilinogen Ur Leukocyte Esterase Urine RBC Urine WBC Ur Squamous Epith Cells Urine Bacteria Ur Culture Indicated? Micro UA Comment Assessment & Plan Assessment & Plan narrative: This is a delightful lady with refractory paroxysmal atrial fibrillation who was noted to have mild troponin elevation after the recent episode of atrial fibrillation that lasted about 9 hours. She had mild symptoms of intermittent lightheadedness but no angina or dyspnea.Her ECG did not show any ischemic changes. It is quite possible that this was demand ischemia in the setting of hypertension and atrial fibrillation. However, I believe a stress test is warranted specially given the fact that she will need this hernia surgery and will require risk stratification after troponin elevation. We will also obtain an echocardiogram to assess her LVEF and wall motion. Plan: Echo -MPI UPDATE: The stress portion of the MPI shpwed questionable apical and apical septal, mild perfusion abnormality. I suspect this might be attenuation artifact. Will obtain rest images to ensure there is no ischemia. UPDATE: No ischemia and the defect is artifactual. She can be discharged home.I advised her to consider the 5 mg bid dosing of apixaban and she will discuss this with her primary thimble press operator.
--- NOTE | 2018-12-29 17:07 | PC.NURSE ---
[place] shift note: Patient returned from Stress test at approximately 1530, awake and alert. No c/o chest pain, SOB, or dizziness. Patient is very anxious to go home this evening, is refusing telemonitor and SCDs, discussed importance of both interventions, however patient is pacing in room. Awaiting for cardiology. Dr. Downing (painter spray) arrive at 1700, in room discussing results with patient. Awaiting disposition
[2018-12-29] MEDS: APIXABAN 5 MG TABLET PO (21:14)
[2018-12-30 04:10] VITALS: BP 140/71; PULSE 58; RESP 14; TEMP 36.3; O2SAT 96
--- NOTE | 2018-12-30 06:49 | PC.NURSE ---
NOC Shift: At 0400 VS check pt awake, anxious wondering why no one had come sooner to check her VS. When questioning pt as to why, she states that she has been havng palpatations and thinks she has been in Afib the last few hours. Pt has been on telemetry since admission, and through this shift. Spoke with BARBER APPRENTICE Ashley who went through all tracing from 2300 and pt has not been noted to have had any Atrial fibrilation throughout shift actually SR/SB with PAC's, PVC's. Attempts to explain to patient unsuccessful, pt states that staff analyst must not have been watching monitor then. Pt denies pain, discomfort, SOB. Refused AM lab draws this morning stating she just wants to go home today. Pt offered emotional support, states she feels fine.
[2018-12-30 08:04] VITALS: BP 154/93; PULSE 64
[2018-12-30] MEDS: LOSARTAN 25 MG TABLET PO (08:04)
[2018-12-30] MEDS: carvediloL 25 MG TABLET PO (08:05)
[2018-12-30] MEDS: SODIUM CHLORIDE 0.9% FLUSH 10 ML IV (08:05)
[2018-12-30] MEDS: APIXABAN 5 MG TABLET PO (08:05)
[2018-12-30 08:27] VITALS: BP 154/93; PULSE 64; RESP 14; TEMP 36.8; O2SAT 100
[2018-12-30 13:00] VITALS: BP 154/73; PULSE 66; RESP 12; O2SAT 99
--- NOTE | 2018-12-30 15:47 | CM.DPNOTE ---
Chart reviewed, pt here for surgical hernia repair, ended up requiring a cardiac w/u for afib. Associate Civil Engineer consulted, pt had a stress test last night. No updated note from Dr Solorio today but this STRADDLE BUG sees a DC order in place for today. Nursing notes do not indicate whether pt will return home tonight, this STRADDLE BUG unable to complete a DCP assessment today. Home w/o barriers has been expected P: DC likely home today if pt is scheduled to return for her hernia repair vs staying admitted for surgery w/surgical team ? Will await final determination and assess further as needed. DIANE Cavazos
--- NOTE | 2018-12-31 11:09 | PC.NURSE ---
Spoke with Pt re: [place] meds left in safe. Pt is back on [facility] and has asked us to dispose of the remainder of the pills as she has stated she doesn't need them. RN discussed with Simin in Pharmacy and they will be held there for three months should she request them at a later date.
== END 2018-12-30 14:45 | disposition home or self-care (01) ==
PROVIDERS: Anesthesiology; Internal Medicine; Admitting Provider Surgery; PCP Family Medicine; Visit Provider Surgery
DX: I48.0 Paroxysmal atrial fibrillation (principal); R79.89 Other specified abnormal findings of blood chemistry; K43.9 Ventral hernia without obstruction or gangrene; F41.9 Anxiety disorder, unspecified; K21.9 Gastro-esophageal reflux disease without esophagitis
CPT/HCPCS: 36415; 78451; 78452; 80048; 81001; 82550; 83735; 84100; 84443; 84484; 85025; 93005; 93016; 93017; 93018; 93306; G0378; A9502; G0379; J2785

== ENCOUNTER 2020-03-09 14:31 | Emergency (ER) | payer MEDICARE, MEDICAID, SELFPAY ==
[2020-03-09] VITALS (44 sets, daily range): BP systolic 97–185; BP diastolic 58–113; PULSE 56–140; RESP 0–21; TEMP 36.6; O2SAT 98–100; BMI 27.9
--- NOTE | 2020-03-09 14:40 | ED_ITS ---
HPI - General Adult General Chief complaint: Arrhythmia/Palpitations Stated complaint: AFIB x3 days,wants cardio version Time Seen by Provider: 03/09/20 14:32 Source: patient Mode of arrival: Ambulatory Limitations: no limitations History of Present Illness HPI narrative: Patient is an 84-year-old female with a history of paroxysmal atrial fibrillation. She is on Eliquis and also on carvedilol and dofetilide here for evaluation of 3 days of which she states is atrial fibrillation. She states that she started feeling like her heart was beating irregularly 3 days ago. She waited this long to come in because she thought that it would potentially resolve on its own. She is not having any lightheadedness. She has had cardioversions in the past and would like to have a cardioversion. She is on Eliquis. States she has taken her Eliquis 2 times a day religiously for the past several years and stated that she definitely has not missed a dose in the past 4-6 weeks. Related Data Home Medications Medication Instructions Recorded Confirmed Eliquis 2.5 mg PO BID 02/12/18 12/28/18 acetaminophen [Tylenol Extra 500 mg PO PRN PRN 02/12/18 12/28/18 Strength] carvedilol 25 mg PO BID 02/12/18 12/28/18 dofetilide 125 mcg PO Q12H 02/12/18 12/28/18 losartan 25 mg PO BID 02/13/18 12/28/18 Allergies Allergy/AdvReac Type Severity Reaction Status Date / Time No Known Drug Allergies Allergy Verified 12/28/18 11:13 Review of Systems Constitutional Constitutional: Denies fever(s) and Denies headache(s) ENT Ears, Nose, Mouth, and Throat: Denies headache(s) Cardiovascular Cardiovascular: Denies chest pain, Reports rapid heart rate, Reports irregular heart rhythm and Denies dyspnea Respiratory Respiratory: Denies cough and Denies dyspnea Gastrointestinal Gastrointestinal: Denies abdominal pain, Denies nausea and Denies vomiting Genitourinary Genitourinary: Denies dysuria Genitourinary: Denies dysuria Musculoskeletal Musculoskeletal: Denies arthralgias and Denies myalgias Integumentary/Breasts Skin/Breast: Denies rash Neurologic Neurologic: Denies behavioral changes and Denies headache(s) Psychiatric Psychiatric: Denies behavioral changes Hematologic/Lymphatic On Anticoagulants: Yes Allergic/Immunologic Allergic/Immunologic: Denies urticaria Patient History Medical History (Updated 03/09/20 @ 18:15 by Daniel Parrish DO) Anxiety Arthritis Atrial fibrillation Easy bruisability Eczema GERD (gastroesophageal reflux disease) Non-ulcer dyspepsia UTI (urinary tract infection) Surgical History History of cataract surgery History of inguinal hernia repair History of radiofrequency ablation procedure for cardiac arrhythmia Status post right hip replacement (01/31/18) Status post surgery (09/12/08) Family History Father Cardiovascular disease Atrial fibrillation Mother Alzheimer's dementia Social History details: Lives on [facility] household members: none Smoking Status: Former smoker alcohol intake: never Smoking Status: Former smoker alcohol intake frequency: 0-2 drinks per day Substance Use Type: does not use Exam Initial Vital Signs Initial Vital Signs: Vital Signs Temperature 97.8 F 03/09/20 14:44 Pulse Rate 140 H 03/09/20 14:44 Respiratory Rate 20 03/09/20 14:44 Blood Pressure 145/102 H 03/09/20 14:44 Pulse Oximetry 99 03/09/20 14:44 Const General: cooperative and comfortable Limitations: mental status not altered HENMT Head: normal to inspection and normocephalic Resp Effort & Inspection: normal respiratory effort Auscultation: clear to auscultation bilaterally Cardio Rate: tachycardic Rhythm: abnormal rhythm GI Inspection: non-distended Palpation: soft Skin Lesions: no lesions Rashes: no rashes Neuro General: patient alert, patient awake and patient oriented x3 Cognition: normal cognition Speech: speech normal Extrem General: capillary refill normal Psych Appearance: grossly normal and well kempt Procedures Cardioversion Consent Signed: Yes Indication: Atrial fibrillation Stability: Stable Number of attempts (shocks): 1 Joules used: 150 Cardiac rhythm post-cardioversion: Sinus rhythm Procedural Sedation Consent signed: Yes Time out performed: Yes Indication: cardioversion Presedation Evaluation: See note ASA Class: II Preparation: vehicle monitor technician applied, pulse oximeter, capnometry used and supplemental O2 applied IV Propofol dose (mg): 70 ED Sedation Level: Moderate (Concious) Patient Tolerated Procedure: Well Complications: Respiratory Depression Requiring Ambulance Assistance Interventions: Airway repositioned and Assist by BVM Course Orders Ordered: ED Orders 03/09/20 14:33 EKG-12 Lead Stat 03/09/20 14:42 COVID19 Stat RT Consult Eval and Treat Now Discontinued Medications Adenosine (Adenosine 6 Mg/2 Ml Vial) 12 mg IV NOW ONE Stop: 03/09/20 16:00 Last Admin: 03/09/20 16:00 Dose: 12 mg Documented by: RANDA Metoprolol Tartrate (Metoprolol Tartrate 5 Mg/5 Ml Inj) 5 mg IV NOW ONE Stop: 03/09/20 15:01 Last Admin: 03/09/20 15:05 Dose: 5 mg Documented by: RANDA Morphine Sulfate (Morphine 2 Mg/Ml Inj) 2 mg IV NOW ONE Stop: 03/09/20 14:43 Last Admin: 03/09/20 17:37 Dose: Not Given Documented by: RANDA Morphine Sulfate (Morphine 2 Mg/Ml Inj) 2 mg IV NOW ONE Stop: 03/09/20 16:15 Last Admin: 03/09/20 16:18 Dose: 2 mg Documented by: RANDA Propofol (Propofol 200 Mg/20 Ml Vial) 100 mg IV NOW ONE Stop: 03/09/20 14:46 Last Admin: 03/09/20 17:36 Dose: Not Given Documented by: RANDA Propofol (Propofol 200 Mg/20 Ml Vial) 75 mg 1 mg/kg (75 mg) IV NOW ONE Stop: 03/09/20 16:15 Last Admin: 03/09/20 16:18 Dose: 70 mg Documented by: RANDA Vital Signs Vital signs: Vital Signs - 8 hr 03/09/20 14:44 03/09/20 14:52 03/09/20 15:00 Temperature 97.8 F Pulse Rate 140 H 138 H 138 H Respiratory Rate 20 7 L Blood Pressure 145/102 H Pulse Oximetry 99 100 100 03/09/20 15:01 03/09/20 15:25 03/09/20 15:30 Temperature Pulse Rate 138 H 135 H 135 H Respiratory Rate 15 16 Blood Pressure 185/99 H 158/113 H 146/96 H Pulse Oximetry 100 100 98 03/09/20 15:40 03/09/20 15:49 03/09/20 15:50 Temperature Pulse Rate 135 H 135 H 135 H Respiratory Rate 12 10 L Blood Pressure 131/91 H 129/86 Pulse Oximetry 100 100 100 03/09/20 15:55 03/09/20 16:00 03/09/20 16:05 Temperature Pulse Rate 135 H 135 H 135 H Respiratory Rate 10 L 11 L 19 Blood Pressure 132/90 Pulse Oximetry 100 100 100 03/09/20 16:10 03/09/20 16:15 03/09/20 16:20 Temperature Pulse Rate 140 H 137 H 136 H Respiratory Rate 14 8 L 17 Blood Pressure 150/94 H 137/88 Pulse Oximetry 100 99 100 03/09/20 16:25 03/09/20 16:30 03/09/20 16:35 Temperature Pulse Rate 64 61 59 L Respiratory Rate 14 16 16 Blood Pressure 129/75 132/81 Pulse Oximetry 100 100 100 03/09/20 16:36 03/09/20 16:40 03/09/20 16:42 Temperature Pulse Rate 61 58 L Respiratory Rate 16 13 0 L Blood Pressure 135/75 116/61 Pulse Oximetry 100 100 03/09/20 16:45 03/09/20 16:51 03/09/20 16:55 Temperature Pulse Rate 58 L 56 L 56 L Respiratory Rate 14 Blood Pressure 130/60 137/63 126/58 L Pulse Oximetry 100 100 100 03/09/20 17:00 03/09/20 17:05 03/09/20 17:10 Temperature Pulse Rate 58 L 58 L 64 Respiratory Rate 12 14 16 Blood Pressure 124/63 131/60 140/66 Pulse Oximetry 100 100 100 03/09/20 17:15 03/09/20 17:21 03/09/20 17:26 Temperature Pulse Rate 61 58 L 61 Respiratory Rate 19 Blood Pressure 143/67 H 129/60 130/70 Pulse Oximetry 100 100 99 03/09/20 17:30 03/09/20 17:31 03/09/20 17:36 Temperature Pulse Rate 64 63 64 Respiratory Rate 14 14 Blood Pressure 144/70 H 128/65 Pulse Oximetry 100 100 100 03/09/20 17:40 03/09/20 17:45 03/09/20 17:51 Temperature Pulse Rate 63 64 66 Respiratory Rate 13 14 21 Blood Pressure 129/68 148/67 H 115/68 Pulse Oximetry 100 100 100 03/09/20 17:56 03/09/20 18:00 03/09/20 18:01 Temperature Pulse Rate 64 64 64 Respiratory Rate 11 L 15 14 Blood Pressure 153/76 H 97/74 Pulse Oximetry 100 100 100 Medical Decision Making Medical Records Medical records reviewed: Yes I reviewed the patient's medical records. Lab Data Lab results reviewed: Yes I reviewed the patient's lab results. Labs: Lab Results 03/09/20 Range/Units 14:42 SARS-CoV-2 (PCR) Negative (Negative) Point of Care Testing Test Results Negative Point of care testing: Point of Care Testing Test Results Negative ECG Data Attestation: I personally reviewed and interpreted this ECG as follows: Prior ECG tracings: not available for review Interpretation: Sinus tachycardia Ventricular rate of 140 Normal QRS Normal QTC No ST T wave changes MDM Narrative Medical decision making narrative: Patient arrived 3 days after having an onset of atrial fibrillation. She does have a history of paroxysmal atrial fibrillation. She has been on Eliquis 2 times a day and she states that she has not missed a dose of this in ?years ?she is not having chest pain. No lightheadedness. No shortness of breath. Initial EKG was more concerning for sinus tachycardia than atrial fibrillation. I did discuss the case with Dr. Thorpe who is on-call for her collision technician an EKG was sent to him. He stated that this most likely was atrial flutter however he recommended giving adenosine. She was given 12 mg of adenosine which did not convert her rhythm however flutter waves were apparent. She tolerated this procedure well. She then was cardioverted as described above with conversion to sinus rhythm. She was given return precautions and follow-up instructions. She expressed understanding and agreement. Critical Care Time Critical Care Time Critical Care Time: Yes Total Critical Care Time: 35 Attestation: The high probability of a clinically significant, sudden or life threatening deterioration of the cardiovascular system(s) required my full and direct attention, intervention and personal management. The aggregate critical care time was 35 minutes. This time is in addition to time spent performing reported procedures but includes the following: X [] Data Review and interpretation X [] Patient assessment and monitoring of vital signs [X] Documentation [X] Medication orders and management Discharge Plan Departure Patient Disposition: Home Clinical Impression: Atrial fibrillation Instructions: DI for Cardioversion, DI for Atrial Fibrillation Activity Restrictions/Additional Instructions: I do recommend you continue all of your medications as directed. Contact your primary provider for follow-up. Continue taking your Eliquis as directed. This is important after the cardioversion that you had today. Return to the emergency department for any new or worsening symptoms Prescriptions: No Action carvedilol 25 mg Tablet 25 mg PO BID RF: 0 dofetilide 125 mcg Capsule 125 mcg PO Q12H RF: 0 acetaminophen [Tylenol Extra Strength] 500 mg Tablet 500 mg PO PRN PRN (Reason: pain) RF: 0 Eliquis 2.5 mg Tablet 2.5 mg PO BID RF: 0 losartan 50 mg Tablet 25 mg PO BID RF: 0 Referrals: Winifred Sherman MD [Primary Care Provider] -
[2020-03-09] MEDS: METOPROLOL TARTRATE 5 MG/5 ML INJ IV (15:05)
[2020-03-09 15:07] LABS: COVID19 -Nasal RAPID Negative (Negative)
[2020-03-09] MEDS: ADENOSINE 6 MG/2 ML VIAL 12 MG IV (16:00)
[2020-03-09] MEDS: propofoL 200 MG/20 ML VIAL 75 MG IV (16:18)
[2020-03-09] MEDS: MORPHINE 2 MG/ML INJ IV (16:18)
--- NOTE | 2020-03-09 17:35 | PC.NURSE ---
Pt is back to norm. Speaking clearly. Feels comfortable going home.
== END 2020-03-09 18:33 | disposition home or self-care (01) ==
PROVIDERS: Emergency Provider Emergency Medicine; PCP Family Medicine; Referring Provider Internal Medicine Cardiovascular Disease
DX: I48.0 Paroxysmal atrial fibrillation (principal); Z79.01 Long term (current) use of anticoagulants; Z20.822 Contact with and (suspected) exposure to COVID-19
CPT/HCPCS: 36415; 87635; 92960; 93005; 96374; 96375; 99152; 99284; 99291; C9803; J0153; J2270; J2704

== ENCOUNTER → 2020-09-10 15:01 | Outpatient (CLI) | payer MEDICARE, OTHER, SELFPAY ==
[2020-09-10 19:40] LABS: BUN Creatinine Ratio 33.3 (6-22); Blood Urea Nitrogen 26 mg/dL (7-17); Calcium 9.1 mg/dL (8.4-10.2); Carbon Dioxide 32 mmol/L (22-32); Chloride 96 mmol/L (98-107); Estimated Glomerular Filt Rate > 60.0 mL/min (>60); Glucose 77 mg/dL (80-110); HEMOLYSIS 27 (0-50); Potassium 4.3 mmol/L (3.4-5.1); Sodium 135 mmol/L (137-145)
== END ==
PROVIDERS: PCP Family Medicine; Visit Provider Internal Medicine Cardiovascular Disease
DX: Z51.81 Encounter for therapeutic drug level monitoring (principal)
CPT/HCPCS: 80048

== ENCOUNTER → 2020-09-14 14:20 | Outpatient (CLI) | payer MEDICARE, OTHER, SELFPAY ==
[2020-09-19 08:59] LABS: Fecal Immunochemical Test Negative (Negative)
== END ==
PROVIDERS: PCP Family Medicine; Visit Provider Family Medicine
DX: Z12.11 Encounter for screening for malignant neoplasm of colon (principal)
CPT/HCPCS: 82274

== ENCOUNTER 2020-10-15 11:53 | Emergency (ER) | payer MEDICARE, OTHER, SELFPAY ==
--- NOTE | 2020-10-15 12:00 | DI.RAD.S_ITS ---
PROCEDURE: XR CHEST 1V INDICATIONS: chest pain TECHNIQUE: One view of the chest was acquired. COMPARISON: [facility], CR, XR CHEST 1V, 02/12/2018, 16:26. FINDINGS: Surgical changes and devices: Left-sided dual-chamber pacemaker noted. Lungs and pleura: Lungs are clear. No pleural effusions or pneumothorax. Mediastinum: Mediastinal contours appear normal. Heart size is normal. Atherosclerotic vascular calcification noted in the aortic arch. Bones and chest wall: No suspicious bony lesions. Overlying soft tissues appear unremarkable. Generalized decrease in osseous mineralization noted. IMPRESSION: No acute cardiopulmonary findings Approved by: Teofilo Hurtado M.D. on 10/15/2020 at 11:49
[2020-10-15 12:01] VITALS: BP 175/91; PULSE 86; RESP 18; TEMP 36.9; O2SAT 99; BMI 29.8
[2020-10-15 12:04] VITALS: PULSE 77; RESP 17; O2SAT 100
[2020-10-15 12:26] LABS: Add Manual Diff / Slide Review NO; Basophils Absolute Auto 100 /uL (0-100); Basophils Percent Auto 0.7 % (0-2); Eosinophils Absolute Auto 200 /uL (0-450); Eosinophils Percent Auto 2.5 % (2-4); Hemoglobin 14.6 g/dL (12.0-16.0); Lymphocytes Absolute Auto 2600 /uL (1100-4500); Lymphocytes Percent Auto 30.8 % (25-40); Mean Corpuscular HGB Conc 33.9 % (30-36); Mean Corpuscular Hemoglobin 31.5 PG (26-34); Mean Corpuscular Volume 93.1 fL (80-100); Monocytes Absolute Auto 600 /uL (0-900); Monocytes Percent Auto 7.7 % (3-14); Neutrophils Absolute Auto 4900 /uL (1500-7000); Neutrophils Percent Auto 58.3 % (50-75); Platelet Count 199 X10^3/uL (150-400); Red Blood Cell Count 4.62 X10^6/uL (4.0-5.2); Red Cell Distribution Width 13.1 % (11.6-14.8); White Blood Cell Count 8.3 X10^3/uL (4.5-11.0)
[2020-10-15 12:30] VITALS: PULSE 78; RESP 11; O2SAT 100
[2020-10-15 12:40] LABS: Alanine Aminotransferase 18 IU/L (<35); Albumin 4.4 g/dL (3.5-5.0); Albumin Globulin Ratio 1.4 (1.0-2.8); Alkaline Phosphatase 94 U/L (38-126); Aspartate Aminotransferase 31 IU/L (14-36); BUN Creatinine Ratio 26.4 (6-22); Blood Urea Nitrogen 24 mg/dL (7-17); Calcium 9.4 mg/dL (8.4-10.2); Carbon Dioxide 26 mmol/L (22-32); Chloride 102 mmol/L (98-107); Creatine Kinase 87 U/L (30-135); Globulin 3.2 g/dL (1.7-4.1); Glucose 95 mg/dL (80-110); HEMOLYSIS 45 (0-50); Lipase 77 U/L (23-300); Magnesium 2.3 mg/dL (1.6-2.3); Sodium 134 mmol/L (137-145); Total Protein 7.6 g/dL (6.3-8.2)
[2020-10-15 12:51] LABS: Troponin I < 0.012 ng/mL (0.01-0.034)
[2020-10-15 13:00] VITALS: PULSE 78; RESP 9; O2SAT 100
[2020-10-15 13:10] LABS: TSH w/ Reflex to FT4 1.11 uIU/mL (0.47-4.68)
--- NOTE | 2020-10-15 16:19 | ED.ARRPALP ---
HPI - Arrhythmia/Palpitations <Star Meyer PA-C - Last Filed: 10/15/20 16:34> General Chief Complaint: Arrhythmia/Palpitations Stated Complaint: AFIB Time Seen by Provider: 10/15/20 12:03 History of Present Illness HPI narrative: 85-year-old female with past medical history AFib, hypertension, congestive heart failure, stage 3 chronic kidney disease, anxiety presents to the ED with 4 days of tachycardia. Patient has a pacemaker, states that she felt that she was in AFib 4 days ago, converted back to sinus rhythm a few hours later, but feels like she has been tachycardic since then. The patient reports that her heart rate normally runs in the 60s, which she has been experiencing heart rates anywhere between the 70s and 90s over the last 4 days. Patient endorses some fatigue on activity. Denies fever, chills, chest pain, shortness of breath, nausea, vomiting, abdominal pain, lightheadedness, syncope, numbness, tingling, weakness. Denies any recent surgeries, immobilizations, exogenous hormone use, history of DVTs. Patient spoke with the morning news producer about being in AFib and was asked to go to the ED. Related Data Home Medications Medication Instructions Recorded Confirmed acetaminophen 500 mg tablet 500 mg PO PRN PRN 02/12/18 09/26/20 (Tylenol Extra Strength) apixaban 2.5 mg tablet (Eliquis) 2.5 mg PO BID 02/12/18 09/26/20 losartan 50 mg tablet 25 mg PO BID 02/13/18 09/26/20 alprazolam 0.5 mg tablet 0.5 mg PO BEDTIME PRN 07/22/20 09/26/20 ascorbic acid (vitamin C) 500 mg 500 mg PO BID 07/22/20 09/26/20 tablet cholecalciferol (vitamin D3) 125 125 mcg PO DAILY 07/22/20 09/26/20 mcg (5,000 unit) tablet magnesium oxide 800 mg PO DAILY 07/22/20 09/26/20 triamcinolone acetonide 0.1 % 1 applic TOPICAL BID 07/22/20 09/26/20 topical cream vitamin B complex [Vitamins B PO 07/22/20 09/26/20 Complex] diltiazem HCl 120 mg 120 mg PO .COMPLEX 07/23/20 09/26/20 capsule,extended release 24 hr dofetilide 125 mcg capsule 125 mcg PO Q12H 07/23/20 09/26/20 (Tikosyn) furosemide 20 mg tablet 40 mg PO DAILY tab 07/23/20 09/26/20 metoprolol tartrate 100 mg tablet 100 mg PO BID 07/23/20 09/26/20 Allergies Allergy/AdvReac Type Severity Reaction Status Date / Time No Known Drug Allergies Allergy Verified 07/23/20 13:58 Review of Systems <Star Meyer PA-C - Last Filed: 10/15/20 16:34> Constitutional Constitutional: Denies chills, Reports fatigue, Denies fever(s), Denies frequent falls, Denies lethargy and Denies weakness Eyes Eyes: Denies change in vision, Denies eye discharge, Denies irritation and Denies loss of vision ENT Ears, Nose, Mouth, and Throat: Denies change in voice, Denies dizziness, Denies neck pain, Denies sore throat and Denies throat swelling Cardiovascular Cardiovascular: Denies chest pain, Reports rapid heart rate, Denies irregular heart rhythm, Denies lightheadedness, Denies palpitations, Denies dyspnea, Denies dyspnea on exertion and Denies orthopnea Respiratory Respiratory: Denies cough, Denies dyspnea, Denies dyspnea on exertion and Denies wheezing Gastrointestinal Gastrointestinal: Denies abdominal pain, Denies change in bowel habits, Denies diarrhea, Denies nausea and Denies vomiting Musculoskeletal Musculoskeletal: Denies neck pain and Denies numbness Integumentary/Breasts Skin/Breast: Denies pruritus, Denies erythema, Denies rash and Denies wounds Neurologic Neurologic: Denies behavioral changes, Denies confusion, Denies dizziness, Denies frequent falls, Denies loss of vision, Denies numbness and Denies weakness Psychiatric Psychiatric: Denies anxiety, Denies behavioral changes, Denies confusion, Denies depression, Denies homicidal ideation and Denies suicidal ideation Endocrine Endocrine: Reports fatigue, Denies flushing and Denies palpitations Hematologic/Lymphatic Hematologic/Lymphatic: Denies easy bruising Allergic/Immunologic Allergic/Immunologic: Denies urticaria, Denies throat swelling and Denies wheezing Patient History <Star Meyer PA-C - Last Filed: 10/15/20 16:34> Medical History (Updated 10/15/20 @ 13:30 by Star Meyer PA-C) Anxiety Arteriosclerosis Arthritis Atrial flutter by electrocardiography Bilateral leg edema Cardiac pacemaker in situ Cognitive impairment Easy bruisability Eczema GERD (gastroesophageal reflux disease) History of prolonged Q-T interval on ECG Hypomagnesemia Non-ulcer dyspepsia EMILEE (obstructive sleep apnea) Sleep-wake disorder UTI (urinary tract infection) Surgical History (Updated 09/27/20 @ 15:14 by Diamond Mcintosh PA-C) History of cataract surgery History of inguinal hernia repair History of radiofrequency ablation procedure for cardiac arrhythmia Status post right hip replacement (01/31/18) Status post surgery (09/12/08) Family History Father Cardiovascular disease Atrial fibrillation Mother Alzheimer's dementia Social History details: Lives on [facility] household members: none Smoking Status: Former smoker alcohol intake: never Smoking Status: Former smoker alcohol intake frequency: 0-2 drinks per day Substance Use Type: does not use Exam <Star Meyer PA-C - Last Filed: 10/15/20 16:34> Initial Vital Signs Initial Vital Signs: Vital Signs Temperature 98.4 F 10/15/20 12:01 Pulse Rate 86 10/15/20 12:01 Respiratory Rate 18 10/15/20 12:01 Blood Pressure 175/91 H 10/15/20 12:01 Pulse Oximetry 99 10/15/20 12:01 Const General: cooperative HENMT Head: normocephalic and atraumatic Ears: external ears normal and TM's normal bilaterally Nose: external nose normal and No nasal discharge Face and sinus: sinuses nontender, face symmetric, no sinus tenderness and No dry mucous membranes Mouth: oral mucosae normal and moist mucous membranes Teeth and gingiva: dentition normal Throat: tonsils normal and uvula midline Eyes General: appearance normal, both eyes and all related structures Eyelids: eyelids normal Conjunctivae: conjunctivae normal Sclera: sclerae normal Pupils: PERRL EOM: EOM intact bilaterally Neck Neck: normal visual inspection, trachea midline, No lymphadenopathy, No midline deformity and No JVD Lymphatic: No lymphedema Chest Chest: normal inspection of the chest Resp Effort & Inspection: normal respiratory effort, able to speak in complete sentences, no respiratory distress and no use of accessory muscles Auscultation: clear to auscultation bilaterally, no rales, no rhonchi and no wheezes Cardio Rate: regular rate Rhythm: regular rhythm Heart Sounds: no click, no gallops, no murmurs and no rubs Pulses: normal peripheral pulses GI Inspection: non-distended Palpation: soft, no hepatosplenomegaly, No guarding, No pulsatile mass and No tender Auscultation: normal bowel sounds Back/Spine/Pelvis Back: No CVA tenderness Cervical Spine: cervical ROM normal and No pain with cervical ROM Thoracic/Lumbar Spine: thoracic and lumbar spine normal to inspection Skin General: no rashes or lesions noted, No jaundice and No petechiae Neuro General: patient alert, patient oriented x3, gait normal and no focal motor deficits Speech: speech normal Extrem General: full ROM, no clubbing, cyanosis or edema, no pedal edema and no calf tenderness Psych Appearance: well kempt Mental Status: mental status grossly normal Attitude: cooperative Thought Content: normal and suicidality Judgment: judgment good <Karena Gao DO - Last Filed: 10/16/20 07:17> Initial Vital Signs Initial Vital Signs: Vital Signs Temperature 98.4 F 10/15/20 12:01 Pulse Rate 86 10/15/20 12:01 Respiratory Rate 18 10/15/20 12:01 Blood Pressure 175/91 H 10/15/20 12:01 Pulse Oximetry 99 10/15/20 12:01 Course <Star Meyer PA-C - Last Filed: 10/15/20 16:34> Course Course Narrative: During the course of the ED patient's heart rate remained in the 70s, EKG rhythm shows normal sinus rhythm. Labs within normal limit, chest x-ray and EKG normal. Patient stable throughout the ED stay. Will discharge with cardiology follow-up. Orders Ordered: ED Orders 10/15/20 12:00 XR chest 1V Stat EKG-12 Lead Stat 10/15/20 12:18 Complete Blood Count AUTO DIFF Stat Comprehensive Metabolic Panel Stat Lipase Stat Magnesium Stat TSH w/ Reflex to FT4 Stat Troponin & CK Cardiac Panel Stat Vital Signs Vital signs: Vital Signs - 8 hr 10/15/20 12:01 10/15/20 12:04 10/15/20 12:30 Temperature 98.4 F Pulse Rate 86 77 78 Respiratory Rate 18 17 11 L Blood Pressure 175/91 H Pulse Oximetry 99 100 100 10/15/20 13:00 Temperature Pulse Rate 78 Respiratory Rate 9 L Blood Pressure Pulse Oximetry 100 <Karena Gao DO - Last Filed: 10/16/20 07:17> Orders Ordered: ED Orders 10/15/20 12:00 XR chest 1V Stat EKG-12 Lead Stat 10/15/20 12:18 Complete Blood Count AUTO DIFF Stat Comprehensive Metabolic Panel Stat Lipase Stat Magnesium Stat TSH w/ Reflex to FT4 Stat Troponin & CK Cardiac Panel Stat Vital Signs Vital signs: Vital Signs - 8 hr 10/15/20 12:01 10/15/20 12:04 10/15/20 12:30 Temperature 98.4 F Pulse Rate 86 77 78 Respiratory Rate 18 17 11 L Blood Pressure 175/91 H Pulse Oximetry 99 100 100 10/15/20 13:00 Temperature Pulse Rate 78 Respiratory Rate 9 L Blood Pressure Pulse Oximetry 100 MDM - Arrhythmia/Palpitations <Star Meyer PA-C - Last Filed: 10/15/20 16:34> Medical Records Attestation: I reviewed the patient's medical records. Lab Data Attestation: I reviewed the patient's lab results. Lab results narrative: Labs within normal limits Result diagrams: 10/15/20 12:18 10/15/20 12:18 Labs: Lab Results 10/15/20 10/15/20 10/15/20 Range/Units 12:18 12:18 12:18 WBC 8.3 (4.5-11.0) X10^3/uL RBC 4.62 (4.0-5.2) X10^6/uL Hgb 14.6 (12.0-16.0) g/dL Hct 43.0 (36-46) % MCV 93.1 (80-100) fL MCH 31.5 (26-34) PG MCHC 33.9 (30-36) % RDW 13.1 (11.6-14.8) % Plt Count 199 (150-400) X10^3/uL Neut % (Auto) 58.3 (50-75) % Lymph % (Auto) 30.8 (25-40) % [place] % (Auto) 7.7 (3-14) % Eos % (Auto) 2.5 (2-4) % Baso % (Auto) 0.7 (0-2) % Neut # (Auto) 4900 (3785-4069) /uL Lymph # (Auto) 2600 (8292-7370) /uL [place] # (Auto) 600 (0-900) /uL Eos # (Auto) 200 (0-450) /uL Baso # (Auto) 100 (0-100) /uL Sodium 134 L (137-145) mmol/L Potassium 5.0 (3.4-5.1) mmol/L Chloride 102 (98-107) mmol/L Carbon Dioxide 26 (22-32) mmol/L BUN 24 H (7-17) mg/dL Creatinine 0.91 (0.52-1.04) mg/dL Estimated GFR 59.0 L (>60) mL/min BUN/Creatinine Ratio 26.4 H (6-22) Glucose 95 (80-110) mg/dL Calcium 9.4 (8.4-10.2) mg/dL Magnesium 2.3 (1.6-2.3) mg/dL Total Bilirubin 1.0 (0.2-1.3) mg/dL AST 31 (14-36) IU/L ALT 18 (<35) IU/L Alkaline Phosphatase 94 (38-126) U/L Total Creatine Kinase 87 (30-135) U/L CK-MB (CK-2) TNP CK-MB (CK-2) Rel Index TNP Troponin I < 0.012 (0.01-0.034) ng/mL Total Protein 7.6 (6.3-8.2) g/dL Albumin 4.4 (3.5-5.0) g/dL Globulin 3.2 (1.7-4.1) g/dL Albumin/Globulin Ratio 1.4 (1.0-2.8) Lipase 77 (23-300) U/L TSH 1.11 (0.47-4.68) uIU/mL Imaging Data Chest x-ray: Radiologist's Impresson: PROCEDURE: XR CHEST 1V INDICATIONS: chest pain TECHNIQUE: One view of the chest was acquired. COMPARISON: [facility], , XR CHEST 1V, 02/12/2018, 16:26. FINDINGS: Surgical changes and devices: Left-sided dual-chamber pacemaker noted. Lungs and pleura: Lungs are clear. No pleural effusions or pneumothorax. Mediastinum: Mediastinal contours appear normal. Heart size is normal. Atherosclerotic vascular calcification noted in the aortic arch. Bones and chest wall: No suspicious bony lesions. Overlying soft tissues appear unremarkable. Generalized decrease in osseous mineralization noted. IMPRESSION: No acute cardiopulmonary findings Approved by: Teofilo Hurtado M.D. on 10/15/2020 at 11:49 ECG Data Interpretation: Atrial sensed ventricular paced rhythm, ventricular rate 85, QTC 542 Pacemaker function: normal pacer function MDM Narrative Medical decision making narrative: 85-year-old female with past medical history AFib, hypertension, congestive heart failure, stage 3 chronic kidney disease, anxiety presents to the ED with 4 days of tachycardia. Concern for ACS versus pneumonia versus dehydration versus thyroid issues versus CHF exacerbation. Unlikely PE given history. Will order labs, troponin, chest x-ray, TSH. Will reassess. Likely discharge home with morning news producer follow-up. <Karena Gao DO - Last Filed: 10/16/20 07:17> Lab Data Labs: Lab Results 10/15/20 10/15/20 10/15/20 Range/Units 12:18 12:18 12:18 WBC 8.3 (4.5-11.0) X10^3/uL RBC 4.62 (4.0-5.2) X10^6/uL Hgb 14.6 (12.0-16.0) g/dL Hct 43.0 (36-46) % MCV 93.1 (80-100) fL MCH 31.5 (26-34) PG MCHC 33.9 (30-36) % RDW 13.1 (11.6-14.8) % Plt Count 199 (150-400) X10^3/uL Neut % (Auto) 58.3 (50-75) % Lymph % (Auto) 30.8 (25-40) % [place] % (Auto) 7.7 (3-14) % Eos % (Auto) 2.5 (2-4) % Baso % (Auto) 0.7 (0-2) % Neut # (Auto) 4900 (7110-5146) /uL Lymph # (Auto) 2600 (4039-3248) /uL [place] # (Auto) 600 (0-900) /uL Eos # (Auto) 200 (0-450) /uL Baso # (Auto) 100 (0-100) /uL Sodium 134 L (137-145) mmol/L Potassium 5.0 (3.4-5.1) mmol/L Chloride 102 (98-107) mmol/L Carbon Dioxide 26 (22-32) mmol/L BUN 24 H (7-17) mg/dL Creatinine 0.91 (0.52-1.04) mg/dL Estimated GFR 59.0 L (>60) mL/min BUN/Creatinine Ratio 26.4 H (6-22) Glucose 95 (80-110) mg/dL Calcium 9.4 (8.4-10.2) mg/dL Magnesium 2.3 (1.6-2.3) mg/dL Total Bilirubin 1.0 (0.2-1.3) mg/dL AST 31 (14-36) IU/L ALT 18 (<35) IU/L Alkaline Phosphatase 94 (38-126) U/L Total Creatine Kinase 87 (30-135) U/L CK-MB (CK-2) TNP CK-MB (CK-2) Rel Index TNP Troponin I < 0.012 (0.01-0.034) ng/mL Total Protein 7.6 (6.3-8.2) g/dL Albumin 4.4 (3.5-5.0) g/dL Globulin 3.2 (1.7-4.1) g/dL Albumin/Globulin Ratio 1.4 (1.0-2.8) Lipase 77 (23-300) U/L TSH 1.11 (0.47-4.68) uIU/mL Discharge Plan Departure Patient Disposition: Home Clinical Impression: Tachycardia Instructions: DI for Atrial Fibrillation Activity Restrictions/Additional Instructions: Normal sinus rhythm in the ED without atrial fibrillation or tachycardia. Labs, EKG, chest x-ray were all normal. Follow-up with morning news producer in 2 days. Return to the ED if you experience any chest pain, shortness of breath. Prescriptions: No Action acetaminophen [Tylenol Extra Strength] 500 mg Tablet 500 mg PO PRN PRN (Reason: pain) RF: 0 Eliquis 2.5 mg Tablet 2.5 mg PO BID RF: 0 losartan 50 mg Tablet 25 mg PO BID RF: 0 metoprolol tartrate 100 mg tablet 100 mg PO BID RF: 0 diltiazem HCl 120 mg capsule,extended release 24hr 120 mg PO .COMPLEX RF: 0 furosemide 20 mg tablet 40 mg PO DAILY RF: 0 dofetilide [Tikosyn] 125 mcg capsule 125 mcg PO Q12H RF: 0 ascorbic acid (vitamin C) 500 mg tablet 500 mg PO BID RF: 0 vitamin B complex PO RF: 0 alprazolam 0.5 mg tablet 0.5 mg PO BEDTIME PRNRF: 0 cholecalciferol (vitamin D3) 125 mcg (5,000 unit) tablet 125 mcg PO DAILY RF: 0 magnesium oxide 400 mg magnesium tablet 800 mg PO DAILY RF: 0 triamcinolone acetonide 0.1 % cream 1 applic topical BID RF: 0 Referrals: Darinel Lopez MD [Primary Care Provider] - <Karena Gao DO - Last Filed: 10/16/20 07:17> Sign Out Provider Sign Out Attestation: I was immediately available in the department for consultation. Documentation has been reviewed. I agree with assessment and plan.
== END 2020-10-15 13:38 | disposition home or self-care (01) ==
PROVIDERS: Emergency Medicine; Emergency Provider Student in an Organized Health Care Education/Training Program; PCP Family Medicine
DX: R00.0 Tachycardia, unspecified (principal); R53.83 Other fatigue; R07.9 Chest pain, unspecified; Z95.0 Presence of cardiac pacemaker
CPT/HCPCS: 36415; 71045; 80053; 82550; 83690; 83735; 84443; 84484; 85025; 93005; 99283; 99284

== ENCOUNTER → 2020-12-11 09:57 | Outpatient (CLI) | payer MEDICARE, OTHER, SELFPAY ==
[2020-12-11 19:26] LABS: BUN Creatinine Ratio 18.2 (6-22); Blood Urea Nitrogen 16 mg/dL (7-17); Calcium 9.1 mg/dL (8.4-10.2); Carbon Dioxide 30 mmol/L (22-32); Chloride 100 mmol/L (98-107); Estimated Glomerular Filt Rate > 60.0 mL/min (>60); Glucose 84 mg/dL (80-110); HEMOLYSIS < 15 (0-50); Potassium 4.8 mmol/L (3.4-5.1); Sodium 138 mmol/L (137-145)
== END ==
PROVIDERS: PCP Family Medicine; Visit Provider Internal Medicine Cardiovascular Disease
DX: Z51.81 Encounter for therapeutic drug level monitoring (principal); Z79.899 Other long term (current) drug therapy
CPT/HCPCS: 80048

== ENCOUNTER → 2021-04-23 09:41 | Outpatient (CLI) | payer MEDICARE, OTHER, SELFPAY ==
--- NOTE | 2021-04-23 | DI.NM.S_ITS ---
PROCEDURE: NM ANTONIO PERF SPECT R&S PHARM Rest and pharmacological stress myocardial perfusion SPECT with gated imaging and ejection fraction RADIOPHARMACEUTICAL: 13.8 mCi Tc-99m tetrafosmin IV at rest and 25.0 mCi Tc-99m tetrafosmin IV at peak effect of pharmacological stress. Eqi-aur-rjuwuhgd was performed. INDICATIONS: other chest pain TECHNIQUE: Radiopharmaceutical was injected at peak stress test, and also at rest. SPECT images were obtained. SPECT myocardial perfusion images were displayed in short axis, horizontal long axis, and vertical long axis views. Gated images were reviewed using [employer] software. COMPARISON: None. CARDIAC STRESS: A pharmacologic stress test was performed under the supervision of an attending staff, using an infusion of lexiscan 0.4mg IV X1. Hemodynamic data: There is normal blood pressure and heart rate response to pharmacologic stress. Symptoms: The patient denied anginal chest pain. Aminophylline: none EKG: Resting ECG shows AF with ventricular pacing. No diagnostic changes of ischemia; no ectopy. FINDINGS: Raw data: There is good myocardial uptake of radiotracer. No significant motion artifacts. Left ventricle function: Gated images demonstrate normal left ventricular wall thickening. No segmental wall motion abnormalities. No transient ischemic dilation; TID is 1.06 (normal less than 1.3). Left ventricle resting end diastolic volume is 91 mL. Left ventricle stress ejection fraction is 79%; normal range is above 45%. Myocardial perfusion: There is moderately intense perfusion defect in the anteroapex at rest that improves with stress suggesting probably breast attenuation artifact but small prior non-transmural DE can't be excluded definitively. No ischemia. No prone imaging done as the patient felt that prone position would hurt her too much. IMPRESSION: Low risk, probably normal pharmaceutical nuclear stress test 1) There is moderately intense perfusion defect in the anteroapex at rest that improves with stress suggesting probably breast attenuation artifact but small prior non-transmural DE can't be excluded definitively as no prone imaging done since the patient felt that prone position would hurt her too much. No ischemia. 2) Normal left ventricular size, wall motion, and systolic function (EF 79% post stress). 3) ECG non-diagnostic due to ventricular pacing. 4) No angina during the study. 5) Compared to the nuclear stress test done 12/29/2018, no significant change. Dictated by: Jagjit Bonilla MD on 04/23/2021 at 16:00 Approved by: Jagjit Bonilla MD on 04/23/2021 at 16:03
[2021-04-23 10:38] LABS: COVID19 -Nasal RAPID Negative (Negative)
== END ==
PROVIDERS: PCP Family Medicine; Referring Provider Internal Medicine Cardiovascular Disease; Visit Provider Internal Medicine Cardiovascular Disease
DX: R07.89 Other chest pain (principal); Z20.822 Contact with and (suspected) exposure to COVID-19
CPT/HCPCS: 78452; 87635; 93017; A9502; J2785

== ENCOUNTER 2022-06-06 11:18 | Day surgery (SDC) | payer MEDICARE, MEDICAID, SELFPAY ==
[2022-05-22 14:43] VITALS: BMI 35.4
[2022-06-06] VITALS (7 sets, daily range): BP systolic 105–170; BP diastolic 66–100; PULSE 58–75; RESP 10–22; TEMP 36.2–36.7; O2SAT 99–100; BMI 35.4
--- NOTE | 2022-06-06 | PATH_ITS ---
[facility] Accession Number: [id number] No. of containers..01 Tissue . 01 Material submitted: . toe - 5TH RIGHT TOE BONY MASS . 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 MRV 06/12/2022 1722 Local . 01 Comment: The findings are not entirely specific. The amorphous/eosinophilic material may represent material from prior medication injections or potential myxoid degenerative changes. The characteristic needle morphology of crystal deposition, as in gout or pseudogout, is not definitively identified. Nevertheless, if there is a persistant clinical concern for a crystal deposition disorder, evaluation of fresh tissue is recommended for a more definitive evaluation. Clinical and radiographic correlation is suggested. . This case has been reviewed by Dr. Neva Walters, who agrees with the above diagnosis. . 01 Electronically signed: . Noé Nobles MD, Dermatopathologist NPI- [id number] . 01 Gross description: . The specimen is received in formalin labeled with the patient's name, , and fifth right toe bony mass, and consists of three de santiago variable soft to hard tissue fragments aggregating to 1.4 x 1.3 x 0.4 cm. The external surfaces are differentially inked, and the specimen is submitted entirely in cassette A1 following decalcification. ([id number]) /FRR 06/07/2022 1003 Local . 01 Pathologist provided ICD-10: M89.8X9 . 01 CPT . 456902, [id number] Specimen Comment: A courtesy copy of this report has been sent to [phone] Performed at: 01 [facility] [address] [facility], [place], [place] [id number] MD Augustin Perez MD Phone: [phone]
[2022-06-06] MEDS: LACTATED RINGERS 1,000 ML 120 ML IV (13:24)
--- NOTE | 2022-06-06 14:24 | PM.PREOP ---
Pre-operative Note Interval Note History & Physical reviewed/Exam performed by Physician: Yes Changes to H&P: No
--- NOTE | 2022-06-06 14:35 | P.OP_ITS ---
Operative Date/Time/Diagnoses Date of procedure: 06/06/22 Time of procedure: 14:35 Pre-op diagnosis: Right fifth toe mass Post-op diagnosis: same Procedure & Clinicians Procedure: Right fifth toe bony mass excision Same procedure as scheduled: Yes Indications: 86 yo female with enlarged bony mass to the right fifth toe. Due to the large size of it, surgical excision was desired. We spoke about the risks, potential complications, alternatives and expected outcomes. Consent was signed, no contraindications to the procedure at this time. Surgeon: Marsha Hernandes Click Yes if Unassisted: Yes Anesthesia Type: MAC +/- and Sedation Operative Notes Closure Type: primary Specimen(s): other (1. crystal and bony mix of the fragmented tissue removed sent to pathology for identification. 2. Also attempted to send crystal as reconstituted aspirate but lab declined specimen) Estimated Blood Loss (mL): 10 Blood products transfused: none Procedure in detail: The patient was brought to the operating room and placed on the operating table in the supine position. Well padded appropriately aligned. After induction of sedation with monitored anesthesia the foot and ankle were prepped and draped in the usual aseptic manner. An incision was made over the dorsal lateral 5th toe in the location of the underlying bony mass. The incision was deepened through subcutaneous tissues being careful to identify and retract all vital neural and vascular structures. All bleeders were cauterized and ligated as necessary. 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 This was on top of an external to the underlying phalanges of the 5th toe and did not appear to invest into that. As much of this conglomerate mass was able to be removed was passed off the field to be sent to pathology as well as for crystal analysis. The area was irrigated with copious amounts of normal sterile saline. A portion of the most stretched thin skin was able to be easily excised. 4-0 Vicryl was used for the subcutaneous tissues and 3-0 nylon to the toe at the skin. The 5th toe and foot were dressed with a sterile lightly compressive dressing. Complications: none Post-operative Condition: stable Disposition: PACU Plan for aftercare: Following a period of postoperative monitoring, the patient will be discharged to home on written and oral postoperative instructions including keeping the dr essing dry and intact, no greater than 50% weight to the surgical foot, elevating the foot when seated home. DVT prevention techniques have been reviewed. For the 1st postoperative visit the dressing will be changed and close to the 3rd postoperative week we will likely remove the sutures.
[2022-06-06] MEDS: CEFAZOLIN 2 GM/100 ML PREMIX 100 ML IV (14:40)
--- NOTE | 2022-06-06 14:50 | SUR.OPER ---
Supine on padded OR bed, head on pillow, arms secured on padded arm boards at <90 degrees abduction, legs uncrossed, safety belt at thigh, tape over blanket over lower legs.
[2022-06-06] MEDS: BUPIVACAINE 0.5% (PF) 30 ML VIAL INJ (15:28)
[2022-06-06] MEDS: LIDOCAINE 2% INJ MDV 20ML 20 ML INJ (15:30)
== END 2022-06-06 17:04 | disposition home or self-care (01) ==
PROVIDERS: PCP Family Medicine; Referring Provider Podiatrist; Visit Provider Podiatrist
PROC: (CPT 28108; principal; 2022-06-06 14:00)
DX: R22.41 Localized swelling, mass and lump, right lower limb (principal); M79.671 Pain in right foot; M20.41 Other hammer toe(s) (acquired), right foot; L85.1 Acquired keratosis [keratoderma] palmaris et plantaris
CPT/HCPCS: 28108; J0690; J2704; J3010

== ENCOUNTER → 2023-09-01 05:45 | Outpatient (CLI) | payer MEDICARE, OTHER, SELFPAY | PROVIDERS: PCP Family Medicine; Referring Provider Family Medicine; Visit Provider Family Medicine | DX: A04.72 Enterocolitis due to Clostridium difficile, not specified as recurrent (principal) | CPT/HCPCS: 87324 ==

== ENCOUNTER → 2023-09-22 12:56 | Outpatient (CLI) | payer MEDICARE, OTHER, SELFPAY | LOC: WC 13:06 | PROVIDERS: PCP Family Medicine; Referring Provider Family Medicine; Visit Provider Surgery | DX: S81.802A Unspecified open wound, left lower leg, initial encounter (principal); L98.8 Other specified disorders of the skin and subcutaneous tissue; R60.0 Localized edema; L53.9 Erythematous condition, unspecified; L08.89 Other specified local infections of the skin and subcutaneous tissue; Z79.01 Long term (current) use of anticoagulants | CPT/HCPCS: 11042; 87070; 87075; 87205; 99203; 99213 ==

== ENCOUNTER → 2023-09-29 13:12 | Outpatient (CLI) | payer MEDICARE, OTHER, SELFPAY | LOC: WC 13:14 | PROVIDERS: PCP Family Medicine; Referring Provider Family Medicine; Visit Provider Surgery | DX: S81.802A Unspecified open wound, left lower leg, initial encounter (principal); L98.8 Other specified disorders of the skin and subcutaneous tissue; R60.0 Localized edema; L53.9 Erythematous condition, unspecified; Z79.01 Long term (current) use of anticoagulants | CPT/HCPCS: 11042 ==

== ENCOUNTER → 2023-10-06 11:23 | Outpatient (CLI) | payer MEDICARE, OTHER, SELFPAY | LOC: WC 11:24 | PROVIDERS: PCP Family Medicine; Referring Provider Family Medicine; Visit Provider Surgery | DX: S81.802A Unspecified open wound, left lower leg, initial encounter (principal); S80.12XA Contusion of left lower leg, initial encounter | CPT/HCPCS: 11042 ==

== ENCOUNTER → 2023-10-13 11:02 | Outpatient (CLI) | payer MEDICARE, OTHER, MEDICAID, SELFPAY | PROVIDERS: PCP Family Medicine; Referring Provider Family Medicine; Visit Provider Surgery | DX: S81.802A Unspecified open wound, left lower leg, initial encounter (principal); L98.8 Other specified disorders of the skin and subcutaneous tissue; Z79.01 Long term (current) use of anticoagulants | CPT/HCPCS: 11042 ==

== ENCOUNTER → 2023-10-29 10:52 | Outpatient (CLI) | payer MEDICARE, OTHER, SELFPAY | LOC: WC 10:55 | PROVIDERS: PCP Family Medicine; Referring Provider Family Medicine; Visit Provider Surgery | DX: S81.802D Unspecified open wound, left lower leg, subsequent encounter (principal); R60.0 Localized edema; Z79.01 Long term (current) use of anticoagulants | CPT/HCPCS: 99213 ==

== ENCOUNTER → 2024-04-05 14:51 | Outpatient (CLI) | payer MEDICARE, OTHER, MEDICAID, SELFPAY | PROVIDERS: PCP Family Medicine; Visit Provider Physician Assistant Medical | DX: R81 Glycosuria (principal); R10.2 Pelvic and perineal pain; R10.9 Unspecified abdominal pain; N76.0 Acute vaginitis | CPT/HCPCS: 87086 ==